=== PATIENT | male | born 1985 | race Caucasian/White ===

== ENCOUNTER 2020-08-25 10:23 | Inpatient (IN) | payer MEDICAID, SELFPAY ==
--- NOTE | ~2020-08-25 | CT_ITS ---
EXAMINATION: CT ABDOMEN AND PELVIS WITHOUT AND WITH CONTRAST CLINICAL INFORMATION: Question GI bleed. Patient with epigastric and left lower quadrant abdominal pain with bloody diarrhea COMPARISON: None TECHNIQUE: Multidetector volumetric imaging was performed of the abdomen and pelvis before and after the IV administration of 80 mL of Omnipaque 350 intravenous contrast. Sagittal and coronal reformatted images were obtained on the technologist's workstation. This CT examination was performed using dose optimization techniques as appropriate, variously including the following: *Automated exposure control *Adjustment of mA and/or kV according to patient size (this includes techniques or standardized protocols for targeted exams where dose is matched to indication/reason for exam; i.e. extremities or head) *Use of iterative reconstruction technique DLP: 2010 mGy-cm FINDINGS: LUNG BASES: The visualized lung bases are unremarkable. LIVER, GALLBLADDER, AND BILIARY TREE: The liver is normal in size, shape, and attenuation. No focal hepatic lesion or biliary ductal dilatation is present. The gallbladder is unremarkable with no evidence of radiopaque gallstones, gallbladder wall thickening, or obvious pericholecystic inflammatory changes. PANCREAS: Unremarkable SPLEEN: Unremarkable ADRENAL GLANDS: Unremarkable KIDNEYS AND URETERS: The kidneys are normal in size, shape, and attenuation. No hydronephrosis, hydroureter, or calculi seen. No perinephric stranding. BLADDER: Unremarkable GASTROINTESTINAL TRACT: The small and large bowel are unremarkable. The appendix is unremarkable. No abnormal colonic wall thickening to suggest colitis. No abnormal intraluminal contrast accumulation to suggest a site of active GI bleeding at the time of the scan. ABDOMINAL WALL: No significant hernia is appreciated. LYMPH NODES: Normal VASCULAR: Unremarkable PELVIC VISCERA: The prostate and seminal vesicles are unremarkable. OSSEOUS STRUCTURES: Unremarkable CT/CT abdomen pelvis wo/w con IMPRESSION: No acute CT findings. No abnormal intraluminal contrast accumulation to suggest a site of active GI bleeding at the time of the scan.
[2020-08-25 11:36] VITALS: BP 115/76; PULSE 91; RESP 18; TEMP 36.4; O2SAT 99; BMI 37.2
--- NOTE | 2020-08-25 14:22 | ECG_ITS ---
Test Reason : ABDOMIAL PAIN Blood Pressure : / mmHG Vent. Rate : 082 BPM Atrial Rate : 082 BPM P-R Int : 116 ms QRS Dur : 128 ms QT Int : 408 ms P-R-T Axes : 009 053 022 degrees QTc Int : 476 ms Normal sinus rhythm Right bundle branch block Abnormal ECG No previous ECGs available Referred By: Ashlee Chun Electronically Signed By:BRENNA OLSEN MD
[2020-08-25] MEDS: Morphine Sulfate 4 MG/ML CARTRIDGE IVPUSH (15:31)
[2020-08-25] MEDS: 0.9 % Sodium Chloride 1,000 ML 999 ML IVCONT ×2 (15:32→17:50)
[2020-08-25] MEDS: ondansetron HCL 4 MG/2 ML VIAL IVPUSH (15:32)
--- NOTE | 2020-08-25 15:35 | ED.GIBLEED ---
HPI - GI Bleed General Chief complaint: Abdominal Pain Stated complaint: VOMITNG Time Seen by Provider: 08/25/20 14:14 Source: patient and family Mode of arrival: ambulatory Limitations: no limitations History of Present Illness HPI Narrative: 35-year-old male with a past medical history of ADHD and insomnia presenting to the ED with complaints of nausea/vomiting/diarrhea and abdominal pain with gross Hematemesis and gross hematochezia for the past 5 days after eating a Ethiopian beef empanada at [facility] 5 days ago. Reports that he was seen at [facility] a few days ago and diagnosed with viral gastroenteritis and sent home with Reglan although reports no symptomatic relief. He reports the nausea/vomiting/gross hematemesis has resolved but he continues with the diffuse abdominal pain and gross hematochezia diarrhea. Reports he was only 1 that ate this. Denies recent travel or sick contacts. Denies any dizziness, headache fevers, chills, sore throat, chest pain, shortness of breath, palpitations, radiation of the abdominal pain to the back or any other symptoms complaints or concerns at this time. MD complaint: gross hematemesis and gross hematochezia Onset (ago): day(s) (Five days) Severity: moderate Relieving factors: none Exacerbating factors: eating, bowel movement and vomiting Associated symptoms: abdominal pain, nausea, vomiting and loss of appetite Treatments Prior to Arrival: OTC meds (And prescribed medications from [facility]) Related Data Home Medications Medication Instructions Recorded Confirmed bupropion HCl 150 mg PO DAILY 08/25/20 dextroamphetamine-amphetamine 30 mg PO DAILY 08/25/20 [Adderall XR] diphenhydramine HCl [Benadryl] 25 mg PO Q6H PRN 08/25/20 08/25/20 metoclopramide HCl 10 mg PO QID PRN 08/25/20 trazodone 150 mg PO BEDTIME PRN 08/25/20 Allergies Allergy/AdvReac Type Severity Reaction Status Date / Time No Known Allergies Allergy Unverified 12/23/19 15:40 [No Known Allergies*] Review of Systems Review of Systems: Constitutional : Positive fatigue/malaise, No Weight loss, No Fever, No Chills, No Night Sweats ENT/Mouth: No ear pain, No sore throat, No Difficulty swallowing Cardiovascular : No Chest Pain, No SOB, No Dyspnea on Exertion, No Orthopnea, No Edema, No Palpitations Respiratory : No Cough, No Sputum, No Wheezing, No Dyspnea Gastrointestinal : Resolved nausea/vomiting/gross hematemesis, positive abdominal pain/diarrhea/gross hematochezia, No coffee-ground emesis Genitourinary : No irregular bleeding, No Dysuria, No Urinary Frequency, No Hematuria,No Urinary Incontinence, No Urgency, No Flank Pain Musculoskeletal : No joint pain, No Myalgias, No Joint Swelling Skin : No Skin Lesions, No rash Neuro : Positive general Weakness, no focal weakness, No Numbness, No Paresthesias, No Loss of Consciousness, No Dizziness, No Headache Psych : No Social Issues, Heme/Lymph: No Bruising, No Bleeding,No Lymphadenopathy Endocrine : No Polyuria, No Polydipsia, No Temperature Intolerance Yes all other systems are reviewed and are negative [facility] Past Medical History Attestation statement: The following information was validated with the patient. Medical History ADHD Insomnia Social History Social History Alcohol intake: never Smoking Status: Never smoker Use of substances other than those prescribed or required for medical reasons: No Advance Directives: Yes Advance Directives Information Provided: No Advance Directives on File: No Physical Exam Vital Signs: Vital Signs: Last Vital Signs Temp 98.6 F 08/25/20 16:30 Pulse 73 08/25/20 16:30 Resp 18 08/25/20 16:30 BP 147/64 H 08/25/20 16:30 Pulse Ox 100 08/25/20 16:30 Body Mass Index 37.2 vital signs have been reviewed as normal and appeared to be correct. Blood pressure normal. Heart rate normal. Respiration rate normal. Temperature normal. Oxygen saturation normal. Appearance: Alert. Oriented X3. No acute distress. Head: Normal external exam. Normocephalic. Eyes: PERRLA. EOMI. Conjunctiva and sclera normal. Eyelids normal. ENT: Pharynx normal. Uvula midline. Moist mucous membranes. No trismus noted. No drooling noted. No muffled voice noted. Neck: Normal inspection. Neck supple. FROM. No adenopathy. No meningeal signs. CVS: Normal heart rate and rhythm. Heart sound normal. No murmurs noted. Pulses normal throughout. Respiratory: No respiratory distress. Painless inspiration. Breath sounds normal. No wheezes/rales/rhonchi noted. Chest nontender. No accessory muscle usage noted or decreased air movement noted. Abdomen: Soft and moderate tenderness to palpation to epigastric/left lower quadrant with guarding. Nondistended. No rigidity. Bowel sounds normal in all 4 quadrants. No distention noted. No organomegaly noted. No visible injury noted. No rebound tenderness. Negative Rovsing sign. Negative obturator's sign. Negative psoas sign. Negative Mendez sign. : Chaperoned by KACIE Booker. External exam within normal limits no external hemorrhoids noted. Normal sphincter tone. Normal rectal tone. Patient has maroon colored stool positive stool occult. Back: No CVA tenderness. Full range of motion noted. Skin: Skin warm and dry. Normal skin color. Normal skin turgor. No rashes/lesions/lacerations noted. Extremities: Extremities exhibit normal range of motion. Extremities nontender. Neuro: Oriented X 3. No motor deficit. No sensory deficit. Reflexes normal. Normal steady gait. Course Course Course Narrative: 17pm - CT scan tacks came out and reported that the patient just vomited black/dark red colored emesis therefore consulted with GI at this time Dr. Lucio - will start the patient on IV Protonix give 10 mg of Reglan and plan to admit for an endoscope with GI - labs return in patient with an H&H of . White blood cell count [id number]. PT/INR 14.5/1.2. UA revealed 40 ketones otherwise no evidence of UTI. ETOH level negative. Stool occult was positive. Patient negative for COVID/RSV/flu. - still awaiting CT scan abdomen pelvis with IV contrast will continue to monitor until I speak with Dr. Lucio from GI Reevaluation(s) Reevaluation #1: - Dr. Lucio reported to give the patient Carafate, Protonix will also give a dose of Zosyn and Dr. Lucio wants to wait for the CT scan of abdomen and pelvis for the results will re-evaluate Time: 17:11 MDM - GI Bleed MDM Narrative Medical decision making narrative: 35-year-old male with a past medical history of ADHD and insomnia presenting to the ED with complaints of nausea/vomiting/diarrhea and abdominal pain with gross Hematemesis and gross hematochezia for the past 5 days after eating a Ethiopian beef empanada at [facility] 5 days ago. - Plan:Labs, CT scan of abdomen and pelvis with IV contrast, EKG, blood cultures, lactic acid, white blood cells/stool culture, C diff culture. Provide a L of IV fluids, 4 mg of morphine and 4 mg of Zofran then re-evaluate. Medical Records Attestation: I reviewed the patient's medical records. Lab Data Attestation: I reviewed the patient's lab results. Result diagrams: 08/25/20 15:38 08/25/20 15:38 Labs: Lab Results 08/25/20 08/25/20 08/25/20 Range/Units 15:37 15:38 15:38 WBC 14.1 H (4.8-10.8) X10*3/uL RBC 4.39 L (4.60-5.80) X10*6/uL Hgb 11.8 L (14.0-18.0) g/dl Hct 36.4 L (42-52) % MCV 82.9 (80-98) fL MCH 26.9 L (27.0-33.0) pg MCHC 32.4 (31.0-36.0) g/dl RDW 12.4 (11.0-16.0) % Plt Count 358 (160-400) X10*3/uL MPV 11.2 (9.4-12.4) fL Immature Gran % (Auto) 0.5 H (0.0-0.4) % Neut % (Auto) 73.3 H (45-73) % Lymph % (Auto) 19.5 L (20-40) % Glynn % (Auto) 6.0 (2-11) % Eos % (Auto) 0.3 (0-4) % Baso % (Auto) 0.4 (0-2) % Lymph # (Auto) 2.8 (1.2-4.9) X10*3/uL Glynn # (Auto) 0.8 (0.1-1.2) X10*3/uL Eos # (Auto) 0.0 (0.0-0.4) X10*3/uL Baso # (Auto) 0.1 (0.0-0.2) X10*3/uL Abs Immat Gran (auto) 0.07 H (0.00-0.03) X10*3/uL Absolute Neuts (auto) 10.3 H (2.0-8.3) X10*3/uL Absolute Nucleated RBC 0.000 (0.0-0.012) X10*3/uL Nucleated RBC % (auto) 0.0 (0.0-0.2) /100WBC PT 14.5 H (10.8-13.0) SEC INR 1.2 H (0.9-1.1) Sodium (135-145) mmol/L Potassium (3.3-5.1) mmol/L Chloride (96-108) mmol/L Carbon Dioxide (22-29) mmol/L Anion Gap (12-20) BUN (9-16) mg/dL Creatinine (0.5-1.4) mg/dL Estim Creat Clear Calc Estimated GFR Random Glucose (60-115) mg/dL Lactic Acid 1.0 (0.5-2.0) mmol/L Calcium (8.4-10.2) mg/dL Total Bilirubin (0.0-1.0) mg/dL AST (5-37) U/L ALT (0-40) U/L Alkaline Phosphatase (39-117) U/L Total Protein (6.5-8.0) g/dL Albumin (3.5-5.0) g/dL Lipase (8-78) U/L Urine Color Urine Appearance Urine pH (5.0-8.0) Ur Specific [place] (1.005-1.025) Urine Protein (NEG-TRACE) MG/DL Urine Glucose (UA) (NEG) MG/DL Urine Ketones (NEG) MG/DL Urine Blood (NEG) Urine Nitrite (NEG) Ur Leukocyte Esterase (NEG) Stool Occult Blood (NEGATIVE) Ethyl Alcohol mg/dL Coronavirus (PCR) (Negative) Influenza Type A (PCR) (Negative) Influenza Type B (PCR) (Negative) RSV RNA Qual (PCR) (Negative) 08/25/20 08/25/20 08/25/20 Range/Units 15:38 15:38 16:01 WBC (4.8-10.8) X10*3/uL RBC (4.60-5.80) X10*6/uL Hgb (14.0-18.0) g/dl Hct (42-52) % MCV (80-98) fL MCH (27.0-33.0) pg MCHC (31.0-36.0) g/dl RDW (11.0-16.0) % Plt Count (160-400) X10*3/uL MPV (9.4-12.4) fL Immature Gran % (Auto) (0.0-0.4) % Neut % (Auto) (45-73) % Lymph % (Auto) (20-40) % Glynn % (Auto) (2-11) % Eos % (Auto) (0-4) % Baso % (Auto) (0-2) % Lymph # (Auto) (1.2-4.9) X10*3/uL Glynn # (Auto) (0.1-1.2) X10*3/uL Eos # (Auto) (0.0-0.4) X10*3/uL Baso # (Auto) (0.0-0.2) X10*3/uL Abs Immat Gran (auto) (0.00-0.03) X10*3/uL Absolute Neuts (auto) (2.0-8.3) X10*3/uL Absolute Nucleated RBC (0.0-0.012) X10*3/uL Nucleated RBC % (auto) (0.0-0.2) /100WBC PT (10.8-13.0) SEC INR (0.9-1.1) Sodium 139 (135-145) mmol/L Potassium 4.0 (3.3-5.1) mmol/L Chloride 103 (96-108) mmol/L Carbon Dioxide 28 (22-29) mmol/L Anion Gap 12 (12-20) BUN 16 (9-16) mg/dL Creatinine 0.97 (0.5-1.4) mg/dL Estim Creat Clear Calc 156.1 Estimated GFR > 60 Random Glucose 109 (60-115) mg/dL Lactic Acid (0.5-2.0) mmol/L Calcium 9.1 (8.4-10.2) mg/dL Total Bilirubin 0.8 (0.0-1.0) mg/dL AST 19 (5-37) U/L ALT 21 (0-40) U/L Alkaline Phosphatase 80 (39-117) U/L Total Protein 6.6 (6.5-8.0) g/dL Albumin 4.3 (3.5-5.0) g/dL Lipase 12 (8-78) U/L Urine Color Urine Appearance Urine pH (5.0-8.0) Ur Specific [place] (1.005-1.025) Urine Protein (NEG-TRACE) MG/DL Urine Glucose (UA) (NEG) MG/DL Urine Ketones (NEG) MG/DL Urine Blood (NEG) Urine Nitrite (NEG) Ur Leukocyte Esterase (NEG) Stool Occult Blood (NEGATIVE) Ethyl Alcohol < 10 mg/dL Coronavirus (PCR) NEGATIVE (Negative) Influenza Type A (PCR) NEGATIVE (Negative) Influenza Type B (PCR) NEGATIVE (Negative) RSV RNA Qual (PCR) NEGATIVE (Negative) 08/25/20 08/25/20 Range/Units 16:01 16:01 WBC (4.8-10.8) X10*3/uL RBC (4.60-5.80) X10*6/uL Hgb (14.0-18.0) g/dl Hct (42-52) % MCV (80-98) fL MCH (27.0-33.0) pg MCHC (31.0-36.0) g/dl RDW (11.0-16.0) % Plt Count (160-400) X10*3/uL MPV (9.4-12.4) fL Immature Gran % (Auto) (0.0-0.4) % Neut % (Auto) (45-73) % Lymph % (Auto) (20-40) % Glynn % (Auto) (2-11) % Eos % (Auto) (0-4) % Baso % (Auto) (0-2) % Lymph # (Auto) (1.2-4.9) X10*3/uL Glynn # (Auto) (0.1-1.2) X10*3/uL Eos # (Auto) (0.0-0.4) X10*3/uL Baso # (Auto) (0.0-0.2) X10*3/uL Abs Immat Gran (auto) (0.00-0.03) X10*3/uL Absolute Neuts (auto) (2.0-8.3) X10*3/uL Absolute Nucleated RBC (0.0-0.012) X10*3/uL Nucleated RBC % (auto) (0.0-0.2) /100WBC PT (10.8-13.0) SEC INR (0.9-1.1) Sodium (135-145) mmol/L Potassium (3.3-5.1) mmol/L Chloride (96-108) mmol/L Carbon Dioxide (22-29) mmol/L Anion Gap (12-20) BUN (9-16) mg/dL Creatinine (0.5-1.4) mg/dL Estim Creat Clear Calc Estimated GFR Random Glucose (60-115) mg/dL Lactic Acid (0.5-2.0) mmol/L Calcium (8.4-10.2) mg/dL Total Bilirubin (0.0-1.0) mg/dL AST (5-37) U/L ALT (0-40) U/L Alkaline Phosphatase (39-117) U/L Total Protein (6.5-8.0) g/dL Albumin (3.5-5.0) g/dL Lipase (8-78) U/L Urine Color DARK YELLOW Urine Appearance CLEAR Urine pH 6.0 (5.0-8.0) Ur Specific [place] 1.025 (1.005-1.025) Urine Protein NEG (NEG-TRACE) MG/DL Urine Glucose (UA) NEG (NEG) MG/DL Urine Ketones 40 (NEG) MG/DL Urine Blood NEG (NEG) Urine Nitrite NEG (NEG) Ur Leukocyte Esterase NEG (NEG) Stool Occult Blood POSITIVE (NEGATIVE) Ethyl Alcohol mg/dL Coronavirus (PCR) (Negative) Influenza Type A (PCR) (Negative) Influenza Type B (PCR) (Negative) RSV RNA Qual (PCR) (Negative) ECG Data Attestation: I personally reviewed and interpreted this ECG as follows: ECG interpretation date: 08/25/20 ECG interpretation time: 17:23 Interpretation: Normal sinus rhythm with a ventricular rate of 82 with right bundle-branch block no acute ischemic changes are noted. No prior EKGs to compare to at this time. Critical Care Time Critical Care Time Critical Care Time: Yes Total Critical Care Time: 60 Attestation: I personally attest to this time spent taking care of the patient Discharge Plan Discharge Clinical Impression: GI (gastrointestinal bleed) Patient Disposition: Admitted As Inpatient
[2020-08-25 15:44] LABS: MANUAL DIFF FLAG NO
[2020-08-25 15:46] LABS: Basophils Absolute Auto 0.1 X10*3/uL (0.0-0.2); Basophils Percent Auto 0.4 % (0-2); Eosinophils Percent Auto 0.3 % (0-4); Hematocrit 36.4 % (42-52); Hemoglobin 11.8 g/dl (14.0-18.0); Imm Gran Abs Auto 0.07 X10*3/uL (0.00-0.03); Imm Gran Pct Auto 0.5 % (0.0-0.4); Lymphocytes Absolute Auto 2.8 X10*3/uL (1.2-4.9); Lymphocytes Percent Auto 19.5 % (20-40); Mean Corpuscular HGB Conc 32.4 g/dl (31.0-36.0); Mean Corpuscular Hemoglobin 26.9 pg (27.0-33.0); Mean Corpuscular Volume 82.9 fL (80-98); Mean Platelet Volume 11.2 fL (9.4-12.4); Monocytes Absolute Auto 0.8 X10*3/uL (0.1-1.2); Neutrophils Absolute Auto 10.3 X10*3/uL (2.0-8.3); Neutrophils Percent Auto 73.3 % (45-73); Platelet Count 358 X10*3/uL (160-400); Red Blood Count 4.39 X10*6/uL (4.60-5.80); Red Cell Distribution Width 12.4 % (11.0-16.0); White Blood Count 14.1 X10*3/uL (4.8-10.8)
[2020-08-25 15:51] LABS: INTERNATIONAL NORM RATIO 1.2 (0.9-1.1); Prothrombin Time 14.5 SEC (10.8-13.0)
[2020-08-25 16:10] LABS: Glucose Urine UA NEG (NEG); Leukocyte Esterase Urine NEG (NEG); Nitrite Urine NEG (NEG); Specific Gravity - Urine 1.025 (1.005-1.025); Urine Blood NEG (NEG); Urine Ketones 40 MG/DL (NEG); Urine Protein NEG (NEG-TRACE)
[2020-08-25 16:12] LABS: Appearance Urine CLEAR; Color Urine DARK YELLOW
[2020-08-25 16:14] LABS: OBS Int Ctl Valid YES; OBS1 POSITIVE (NEGATIVE)
[2020-08-25 16:27] LABS: Ethanol < 10 mg/dL
[2020-08-25 16:30] VITALS: BP 147/64; PULSE 73; RESP 18; TEMP 37; O2SAT 100
[2020-08-25 16:30] LABS: Alanine Aminotransferase 21 U/L (0-40); Albumin Level 4.3 g/dL (3.5-5.0); Alkaline Phosphatase 80 U/L (39-117); Anion Gap 12 (12-20); Aspartate Amino Transferase 19 U/L (5-37); Bilirubin Total 0.8 mg/dL (0.0-1.0); Blood Urea Nitrogen 16 mg/dL (9-16); Calcium 9.1 mg/dL (8.4-10.2); Carbon Dioxide 28 mmol/L (22-29); Chloride 103 mmol/L (96-108); Creatinine Clr Calc Pharmacy 156.1; Estimated Glomerular Filt Rate > 60; Glucose Random 109 mg/dL (60-115); Lipase 12 U/L (8-78); Sodium 139 mmol/L (135-145); Total Protein 6.6 g/dL (6.5-8.0)
[2020-08-25 16:58] LABS: Influenza A PCR NEGATIVE (Negative); Influenza B PCR NEGATIVE (Negative); Resp Syncy Virus RNA Qual PCR NEGATIVE (Negative); SARS COV2 PCR INHOUSE NEGATIVE (Negative)
[2020-08-25] MEDS: iohexoL 350 MG/ML 100 ML INFUS..BTL IV (17:09)
[2020-08-25] MEDS: Piperacillin Sodium/Tazobactam 3.375 GM in 0.9 % Sodium Chloride 50 ML IV (17:51)
[2020-08-25] MEDS: Pantoprazole Sodium 40 MG/10 ML VIAL 80 MG IVPUSH (17:51)
[2020-08-25] MEDS: Metoclopramide HCl 10 MG/2 ML VIAL IVPUSH (17:51)
[2020-08-25] MEDS: Sucralfate 1 GM TABLET PO (17:51)
[2020-08-25 19:24] LABS: Magnesium 2.3 mg/dL (1.6-2.6)
[2020-08-25 20:44] VITALS: BP 100/51; PULSE 85; RESP 16; TEMP 36.6; O2SAT 98
--- NOTE | 2020-08-25 23:15 | PC.NURSE ---
Report given to C RN by Valentín. Plan to prepare pt for transport to floor.
--- NOTE | 2020-08-25 23:25 | P.HPHOSP_ITS ---
History of Present Illness Date of Service: 08/25/20 Chief Complaint: gi bleed This is a 35-year-old male with past medical history of ADHD, insomnia presents to the hospital with complaints of bloody vomitus as well as bloody stool. Patient reports that on Friday he improved with, has been vomitings about 3-4 ti mes every day until yesterday where he noticed his vomitus had blood. He had 2 episodes of bloody vomiting yesterday, and then he noticed bloody stools yesterday. This stool blood was dark blood but he also had 1 episode of bright red blood per rectum He has also had stomach pain since Friday nonradiating, localized to the epigastric region, 10/14, associated with nausea vomiting. Patient reports that he takes Advil daily for generalized pains and aches and he has been taking that for few months. He reports that his vomiting was aggressive/retching like and then he developed vomiting. he christine any headache, no change in vision, no chest pain, no shortness of breath, no cough, he reports dizziness but otherwise no shortness of breath. No Urinary symptoms and no lower extremity edema On arrival to the ED patient hemodynamically stable with no significant abnormal vitals Labs are significant for WBC count of 14.1, hemoglobin of 11.8 with no previous 1 for comparison, PC of 14.5, INR 1.2, labs otherwise unremarkable Abdominal pelvic CT shows no acute CT findings, no abnormal intraluminal ir contrast accumulation to suggest a site of active GI bleeding at the time of the scan. Past medical history as below on confirm with patient Review of Systems Review of Systems: Yes all other systems are reviewed and are negative [facility] Medical History ADHD Insomnia Social History Household Members: Significant Other Do you presently have visiting nurse or other home services: No Alcohol intake: never Smoking Status: Never smoker Use of substances other than those prescribed or required for medical reasons: Yes Substance Use Type: Marijuana Substance Use Frequency: Weekly Currently Displaying Signs/Symptoms of Drug Intoxication Withdrawal: No Any prior treatment program specific to substance use: No Have you been hit, kicked, punched, or otherwise hurt by someone within the past year? If so, by whom?: No Do you feel safe in your current relationship?: No Is there a partner from a previous relationship who is making you feel unsafe now?: No Are you made to feel afraid or neglected: No Advance Directives: Yes Advance Directives Information Provided: No Advance Directives on File: No Advance Directives Date on File: 08/26/20 Do you have thoughts of harming others: None Do you have a plan to hurt others: No Plan Recently lost weight without trying: No Eating poorly because of decreased appetite: Yes Nutrition Risks: Acute nausea or vomiting x1 week and Poor intake 0-25% >4 days Poor oral hygiene: No Meds Allergies Allergy/AdvReac Type Severity Reaction Status Date / Time No Known Allergies Allergy Unverified 12/23/19 15:40 [No Known Allergies*] Active Medications: Current Medications Generic Name Dose Route Start Last Admin Trade Name Freq PRN Reason Stop Dose Admin Acetaminophen 650 mg 08/25/20 22:39 Acetaminophen 325 Mg Tablet PO Q6H PRN Pain, Mild (Pain Scale 1-3) Bupropion HCl 150 mg 08/26/20 09:00 Bupropion Hcl Xl 150 Mg Tab.Er.24h PO DAILY [facility] Diphenhydramine HCl 25 mg 08/25/20 22:39 Diphenhydramine Hcl 25 Mg Tablet PO Q6H PRN Allergy Symptoms Melatonin 6 mg 08/25/20 22:45 Melatonin 3 Mg Tablet PO BEDTIME PRN Insomnia Non-Formulary Medication 30 mg 08/26/20 09:00 Dextroamphetamine-Amphetamine [Adderall Xr] PO DAILY [facility] Ondansetron HCl 4 mg 08/25/20 22:39 Ondansetron Hcl 4 Mg/2 Ml Vial IVPUSH Q8H PRN Nausea and Vomiting Pantoprazole Sodium 40 mg 08/26/20 06:30 Pantoprazole Sodium 40 Mg/10 Ml Vial IVPUSH [id number] [facility] Pharmacy Consult 1 each 08/25/20 16:59 Consult Rx Perform Med Rec MISCELLANE ONCE PRN Consult order Sodium Chloride 3 ml 08/26/20 00:00 0.9 % Sodium Chloride Flush 3 Ml Syringe IVFLUSH QSHIFT [facility] Trazodone HCl 150 mg 08/25/20 22:39 Trazodone Hcl 50 Mg Tablet PO BEDTIME PRN insomnia Home Medications Medication Instructions Recorded Confirmed Last Taken Type bupropion HCl 150 mg PO DAILY 08/25/20 08/25/20 08/16/20 History dextroamphetamine-amphetamine 30 mg PO DAILY 08/25/20 08/25/20 08/16/20 History [Adderall XR] diphenhydramine HCl [Benadryl] 25 mg PO Q6H PRN 08/25/20 08/25/20 Unknown History ibuprofen [Advil] 200 mg PO Q6H PRN 08/25/20 08/25/20 08/24/20 History melatonin 5 mg PO BEDTIME PRN 08/25/20 08/25/20 08/20/20 History metoclopramide HCl 10 mg PO QID PRN 08/25/20 08/25/20 08/24/20 History trazodone 150 mg PO BEDTIME PRN 08/25/20 08/25/20 08/16/20 History Physical Exam Vital Signs and Narrative: Vital Signs: Last Vital Signs Temp 98 F 08/25/20 20:44 Pulse 85 08/25/20 20:44 Resp 16 08/25/20 20:44 BP 100/51 L 08/25/20 20:44 Pulse Ox 98 08/25/20 20:44 Body Mass Index 37.2 Const: General: cooperative and no acute distress Orientation/consciousness: patient oriented x3 Eyes: General: appearance normal, both eyes and all related structures Resp: Effort & Inspection: normal respiratory effort and able to speak in complete sentences Cardio: Rate: regular rate Rhythm: regular rhythm GI: Other: Epigastric tenderness, no Rebound, no guarding Palpation (GI): Soft to palpation Auscultation: normal bowel sounds Skin: General skin exam: no rashes or lesions noted Neuro: General: patient oriented x3 Cognition (Neuro): normal cognition Extrem: General: Yes normal to inspection and Yes no pedal edema Results Labs CBC and Chem 7: 08/25/20 15:38 08/25/20 15:38 Labs: Laboratory Results - last 24 hr 08/25/20 08/25/20 08/25/20 15:37 15:38 15:38 MCV 82.9 MCH 26.9 L MCHC 32.4 RDW 12.4 Plt Count 358 MPV 11.2 Immature Gran % (Auto) 0.5 H Neut % (Auto) 73.3 H Lymph % (Auto) 19.5 L Bell % (Auto) 6.0 Eos % (Auto) 0.3 Baso % (Auto) 0.4 Lymph # (Auto) 2.8 Bell # (Auto) 0.8 Eos # (Auto) 0.0 Baso # (Auto) 0.1 Abs Immat Gran (auto) 0.07 H Absolute Neuts (auto) 10.3 H Absolute Nucleated RBC 0.000 Nucleated RBC % (auto) 0.0 PT 14.5 H INR 1.2 H Anion Gap Estim Creat Clear Calc Estimated GFR Random Glucose Lactic Acid 1.0 Calcium Magnesium Total Bilirubin AST ALT Alkaline Phosphatase Total Protein Albumin Lipase Urine Color Urine Appearance Urine pH Ur Specific [place] Urine Protein Urine Glucose (UA) Urine Ketones Urine Blood Urine Nitrite Ur Leukocyte Esterase Stool Occult Blood Ethyl Alcohol Coronavirus (PCR) Influenza Type A (PCR) Influenza Type B (PCR) RSV RNA Qual (PCR) 08/25/20 08/25/20 08/25/20 15:38 15:38 16:01 MCV MCH MCHC RDW Plt Count MPV Immature Gran % (Auto) Neut % (Auto) Lymph % (Auto) Bell % (Auto) Eos % (Auto) Baso % (Auto) Lymph # (Auto) Bell # (Auto) Eos # (Auto) Baso # (Auto) Abs Immat Gran (auto) Absolute Neuts (auto) Absolute Nucleated RBC Nucleated RBC % (auto) PT INR Anion Gap 12 Estim Creat Clear Calc 156.1 Estimated GFR > 60 Random Glucose 109 Lactic Acid Calcium 9.1 Magnesium 2.3 Total Bilirubin 0.8 AST 19 ALT 21 Alkaline Phosphatase 80 Total Protein 6.6 Albumin 4.3 Lipase 12 Urine Color Urine Appearance Urine pH Ur Specific [place] Urine Protein Urine Glucose (UA) Urine Ketones Urine Blood Urine Nitrite Ur Leukocyte Esterase Stool Occult Blood Ethyl Alcohol < 10 Coronavirus (PCR) NEGATIVE Influenza Type A (PCR) NEGATIVE Influenza Type B (PCR) NEGATIVE RSV RNA Qual (PCR) NEGATIVE 08/25/20 08/25/20 16:01 16:01 MCV MCH MCHC RDW Plt Count MPV Immature Gran % (Auto) Neut % (Auto) Lymph % (Auto) Bell % (Auto) Eos % (Auto) Baso % (Auto) Lymph # (Auto) Bell # (Auto) Eos # (Auto) Baso # (Auto) Abs Immat Gran (auto) Absolute Neuts (auto) Absolute Nucleated RBC Nucleated RBC % (auto) PT INR Anion Gap Estim Creat Clear Calc Estimated GFR Random Glucose Lactic Acid Calcium Magnesium Total Bilirubin AST ALT Alkaline Phosphatase Total Protein Albumin Lipase Urine Color DARK YELLOW Urine Appearance CLEAR Urine pH 6.0 Ur Specific [place] 1.025 Urine Protein NEG Urine Glucose (UA) NEG Urine Ketones 40 Urine Blood NEG Urine Nitrite NEG Ur Leukocyte Esterase NEG Stool Occult Blood POSITIVE Ethyl Alcohol Coronavirus (PCR) Influenza Type A (PCR) Influenza Type B (PCR) RSV RNA Qual (PCR) Imaging Radiologist's Impressions: Impressions Abdomen/Pelvis CT 08/25/20 14:22 IMPRESSION: No acute CT findings. No abnormal intraluminal contrast accumulation to suggest a site of active GI bleeding at the time of the scan. Assessment and Plan (1) GI (gastrointestinal bleed): Status: Acute (2) Hematemesis: Status: Acute This is a 35-year-old male who presents to the hospital with hematemesis and bloody bowel movements. 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 - make NPO - consult Gastroenterology # hematemesis - secondary to stomach ulcer versus gastritis secondary to NSAID use versus Annie-Oscar tear given his vomiting for the past 4 days prior to having the hematemesis - pen febrile IV 40 b.i.d. - discontinue Advil, avoid all NSAIDs - consult GI - Zofran with symptoms of nausea and vomiting # insomnia - continue home dose of trazodone and Benadryl as well as melatonin # ADHD - continue Adderall, BuSpar, Deep VT prophylaxis: SCDs
[2020-08-25 23:48] VITALS: BP 126/70; PULSE 75; RESP 18; TEMP 36.9; O2SAT 98
[2020-08-26] MEDS: 0.9 % Sodium Chloride Flush 3 ML SYRINGE IVFLUSH ×4 (01:11→21:33)
[2020-08-26 03:16] VITALS: BP 126/68; PULSE 74; RESP 18; TEMP 37; O2SAT 99
[2020-08-26] MEDS: Pantoprazole Sodium 40 MG/10 ML VIAL IVPUSH ×2 (06:11→15:43)
[2020-08-26 07:43] LABS: MANUAL DIFF FLAG NO
[2020-08-26 07:49] VITALS: BP 141/63; PULSE 68; RESP 18; TEMP 36.6; O2SAT 99
[2020-08-26 07:53] LABS: Basophils Absolute Auto 0.1 X10*3/uL (0.0-0.2); Basophils Percent Auto 0.8 % (0-2); Eosinophils Absolute Auto 0.2 X10*3/uL (0.0-0.4); Eosinophils Percent Auto 1.7 % (0-4); Hematocrit 29.6 % (42-52); Hemoglobin 9.4 g/dl (14.0-18.0); Imm Gran Abs Auto 0.07 X10*3/uL (0.00-0.03); Imm Gran Pct Auto 0.6 % (0.0-0.4); Lymphocytes Absolute Auto 3.6 X10*3/uL (1.2-4.9); Mean Corpuscular HGB Conc 31.8 g/dl (31.0-36.0); Mean Corpuscular Hemoglobin 26.6 pg (27.0-33.0); Mean Corpuscular Volume 83.6 fL (80-98); Mean Platelet Volume 11.8 fL (9.4-12.4); Monocytes Absolute Auto 0.8 X10*3/uL (0.1-1.2); Monocytes Percent Auto 7.3 % (2-11); Neutrophils Absolute Auto 6.2 X10*3/uL (2.0-8.3); Neutrophils Percent Auto 56.6 % (45-73); Platelet Count 297 X10*3/uL (160-400); Red Blood Count 3.54 X10*6/uL (4.60-5.80); Red Cell Distribution Width 12.4 % (11.0-16.0); White Blood Count 10.9 X10*3/uL (4.8-10.8)
[2020-08-26] MEDS: buPROPion HCl XL 150 MG TAB.ER.24H PO (08:01)
--- NOTE | 2020-08-26 08:13 | HO.PM.IMPN ---
Subjective Subjective Date of Service: 08/26/20 Interval History: Gi bleed Review of Systems Patient says his abdominal pain and nausea vomiting seems to be resolved No overnight bleeding episode Denies any fever chills Physical Exam Vital Signs: Vital Signs: Last Vital Signs Temp 97.9 F 08/26/20 07:49 Pulse 68 08/26/20 07:49 Resp 18 08/26/20 07:49 BP 141/63 H 08/26/20 07:49 Pulse Ox 99 08/26/20 07:49 Body Mass Index 37.2 Physical exam: Constitutional: Not in acute distress cvs: rrr, [id number] , no murmur res: clear to auscultation ,no rhonchii or wheezing abd: no rebound or guarding ,nt, bs present. ext pulses present , no cyanosis neuro: axo3 , nonfocal. Objective Data Current Medications Generic Name Dose Route Start Last Admin Trade Name Freq PRN Reason Stop Dose Admin Acetaminophen 650 mg 08/25/20 22:39 Acetaminophen 325 Mg Tablet PO Q6H PRN Pain, Mild (Pain Scale 1-3) Bupropion HCl 150 mg 08/26/20 09:00 08/26/20 08:01 Bupropion Hcl Xl 150 Mg Tab.Er.24h PO 150 mg DAILY [facility] Administration Diphenhydramine HCl 25 mg 08/25/20 22:39 Diphenhydramine Hcl 25 Mg Tablet PO Q6H PRN Allergy Symptoms Melatonin 6 mg 08/25/20 22:45 Melatonin 3 Mg Tablet PO BEDTIME PRN Insomnia Non-Formulary Medication 30 mg 08/26/20 09:00 Dextroamphetamine-Amphetamine [Adderall Xr] PO DAILY [facility] Ondansetron HCl 4 mg 08/25/20 22:39 Ondansetron Hcl 4 Mg/2 Ml Vial IVPUSH Q8H PRN Nausea and Vomiting Pantoprazole Sodium 40 mg 08/26/20 06:30 08/26/20 06:11 Pantoprazole Sodium 40 Mg/10 Ml Vial IVPUSH 40 mg BID@0630,1630 [facility] Administration Pharmacy Consult 1 each 08/25/20 16:59 Consult Rx Perform Med Rec MISCELLANE ONCE PRN Consult order Sodium Chloride 3 ml 08/26/20 00:00 08/26/20 08:02 0.9 % Sodium Chloride Flush 3 Ml Syringe IVFLUSH 3 ml QSHIFT [facility] Administration Trazodone HCl 150 mg 08/25/20 22:39 Trazodone Hcl 50 Mg Tablet PO BEDTIME PRN insomnia Labs CBC & Chem 7: 08/26/20 12:32 08/26/20 06:20 Assessment and Plan (1) Hematemesis: Status: Acute (2) GI (gastrointestinal bleed): Status: Acute Assessment and Plan: 35-year-old male who presents to the hospital with hematemesis and bloody bowel movements. 1. 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 Type and cross, monitor H&H closely. 2. hematemesis - secondary to stomach ulcer versus gastritis secondary to NSAID use versus Annie-Oscar tear given his vomiting for the past 4 days prior to having the hematemesis - pen febrile IV 40 b.i.d. - discontinue Advil, avoid all NSAIDs - consult GI - Zofran with symptoms of nausea and vomiting 3. insomnia - continue home dose of trazodone and Benadryl as well as melatonin 4. ADHD - continue Adderall, BuSpar,
[2020-08-26 08:27] LABS: Anion Gap 9 (12-20); Blood Urea Nitrogen 13 mg/dL (9-16); Calcium 8.3 mg/dL (8.4-10.2); Carbon Dioxide 29 mmol/L (22-29); Chloride 106 mmol/L (96-108); Creatinine Clr Calc Pharmacy 172.1; Estimated Glomerular Filt Rate > 60; Glucose Random 91 mg/dL (60-115); Potassium 4.8 mmol/L (3.3-5.1); Sodium 139 mmol/L (135-145)
[2020-08-26 12:00] VITALS: BP 142/68; PULSE 73; RESP 20; TEMP 36.3; O2SAT 99
[2020-08-26 12:39] LABS: Hematocrit 29.3 % (42-52); Hemoglobin 9.5 g/dl (14.0-18.0)
--- NOTE | 2020-08-26 15:10 | P.CNGI_ITS ---
History of Present Illness Data of Consult Service Date: 08/27/20 Requesting physician: Gavino Garza Primary Care Provider: Vidal Mendoza MD [facility] Reason for consult: acute blood loss anemia 35-year-old male with past medical history of ADHD, and insomnia who I am seeing for assessment for acute blood loss anemia. He has been having epigastric pain for several days 10/14 in severity, without radiation. associated with nausea and coffee ground emesis as well as mixture of black stools and bright red blood stools. Patient reports that he takes Advil daily for generalized pains and aches and he has been taking for 7 months at night. he denies any headache, no change in vision, no chest pain, no shortness of breath, no cough, he reports dizziness but otherwise no shortness of breath. No Urinary symptoms and no lower extremity edema Today feels better, no pain, passing dark stools. On arrival to the ED patient hemodynamically stable with no significant abnormal vitals Labs: WBC count of 14.1, hemoglobin of 11.8 dropping to 9.4 g/dl, PC of 14.5, INR 1.2, labs otherwise unremarkable Abdominal pelvic CT shows no acute CT findings, no active GI bleeding at the time of the scan. Review of Systems Review of Systems: Constitutional : Positive fatigue/malaise, No Weight loss, No Fever, No Chills, No Night Sweats ENT/Mouth: No ear pain, No sore throat, No Difficulty swallowing Cardiovascular : No Chest Pain, No SOB, No Dyspnea on Exertion, No Orthopnea, No Edema, No Palpitations Respiratory : No Cough, No Sputum, No Wheezing, No Dyspnea Gastrointestinal : Resolved nausea/vomiting/gross hematemesis, positive abdominal pain/diarrhea/gross hematochezia, No coffee-ground emesis Genitourinary : No irregular bleeding, No Dysuria, No Urinary Frequency, No Hematuria,No Urinary Incontinence, No Urgency, No Flank Pain Musculoskeletal : No joint pain, No Myalgias, No Joint Swelling Skin : No Skin Lesions, No rash Neuro : Positive general Weakness, no focal weakness, No Numbness, No Paresthesias, No Loss of Consciousness, No Dizziness, No Headache Psych : No Social Issues, Heme/Lymph: No Bruising, No Bleeding,No Lymphadenopathy Endocrine : No Polyuria, No Polydipsia, No Temperature Intolerance Yes all other systems are reviewed and are negative [facility] Past Medical History Medical History ADHD Insomnia Social History Social History Household Members: Significant Other Do you presently have visiting nurse or other home services: No Alcohol intake: never Smoking Status: Never smoker Use of substances other than those prescribed or required for medical reasons: Yes Substance Use Type: Marijuana Substance Use Frequency: Weekly Currently Displaying Signs/Symptoms of Drug Intoxication Withdrawal: No Any prior treatment program specific to substance use: No Have you been hit, kicked, punched, or otherwise hurt by someone within the past year? If so, by whom?: No Do you feel safe in your current relationship?: No Is there a partner from a previous relationship who is making you feel unsafe now?: No Are you made to feel afraid or neglected: No Advance Directives: Yes Advance Directives Information Provided: No Advance Directives on File: No Advance Directives Date on File: 08/26/20 Do you have thoughts of harming others: None Do you have a plan to hurt others: No Plan Recently lost weight without trying: No Eating poorly because of decreased appetite: Yes Nutrition Risks: Acute nausea or vomiting x1 week and Poor intake 0-25% >4 days Poor oral hygiene: No Meds Allergies Allergy/AdvReac Type Severity Reaction Status Date / Time No Known Allergies Allergy Unverified 12/23/19 15:40 [No Known Allergies*] Active Medications: Current Medications Generic Name Dose Route Start Last Admin Trade Name Freq PRN Reason Stop Dose Admin Acetaminophen 650 mg 08/25/20 22:39 Acetaminophen 325 Mg Tablet PO Q6H PRN Pain, Mild (Pain Scale 1-3) Bupropion HCl 150 mg 08/26/20 09:00 08/26/20 08:01 Bupropion Hcl Xl 150 Mg Tab.Er.24h PO 150 mg DAILY [facility] Administration Diphenhydramine HCl 25 mg 08/25/20 22:39 Diphenhydramine Hcl 25 Mg Tablet PO Q6H PRN Allergy Symptoms Melatonin 6 mg 08/25/20 22:45 Melatonin 3 Mg Tablet PO BEDTIME PRN Insomnia Non-Formulary Medication 30 mg 08/26/20 09:00 Dextroamphetamine-Amphetamine [Adderall Xr] PO DAILY [facility] Ondansetron HCl 4 mg 08/25/20 22:39 Ondansetron Hcl 4 Mg/2 Ml Vial IVPUSH Q8H PRN Nausea and Vomiting Pantoprazole Sodium 40 mg 08/26/20 06:30 08/26/20 06:11 Pantoprazole Sodium 40 Mg/10 Ml Vial IVPUSH 40 mg BID@0630,1630 [facility] Administration Pharmacy Consult 1 each 08/25/20 16:59 Consult Rx Perform Med Rec MISCELLANE ONCE PRN Consult order Sodium Chloride 3 ml 08/26/20 00:00 08/26/20 08:02 0.9 % Sodium Chloride Flush 3 Ml Syringe IVFLUSH 3 ml QSHIFT [facility] Administration Trazodone HCl 150 mg 08/25/20 22:39 Trazodone Hcl 50 Mg Tablet PO BEDTIME PRN insomnia Home Medications Medication Instructions Recorded Confirmed Last Taken Type bupropion HCl 150 mg PO DAILY 08/25/20 08/25/20 08/16/20 History dextroamphetamine-amphetamine 30 mg PO DAILY 08/25/20 08/25/20 08/16/20 History [Adderall XR] diphenhydramine HCl [Benadryl] 25 mg PO Q6H PRN 08/25/20 08/25/20 Unknown History ibuprofen [Advil] 200 mg PO Q6H PRN 08/25/20 08/25/20 08/24/20 History melatonin 5 mg PO BEDTIME PRN 08/25/20 08/25/20 08/20/20 History metoclopramide HCl 10 mg PO QID PRN 08/25/20 08/25/20 08/24/20 History trazodone 150 mg PO BEDTIME PRN 08/25/20 08/25/20 08/16/20 History Physical Exam Vital Signs: Vital Signs: Last Vital Signs Temp 97.3 F 08/26/20 12:00 Pulse 73 08/26/20 12:00 Resp 20 08/26/20 12:00 BP 142/68 H 08/26/20 12:00 Pulse Ox 99 08/26/20 12:00 Body Mass Index 37.2 Const: General: cooperative and no acute distress Orientation/consciousness: patient oriented x3 Eyes: General: appearance normal, both eyes and all related structures Resp: Effort & Inspection: normal respiratory effort and able to speak in complete sentences Cardio: Rate: regular rate Rhythm: regular rhythm GI: Other: Epigastric tenderness, no Rebound, no guarding Palpation (GI): Soft to palpation Auscultation: normal bowel sounds Skin: General skin exam: no rashes or lesions noted Neuro: General: patient oriented x3 Cognition (Neuro): normal cognition Extrem: General: Yes normal to inspection and Yes no pedal edema Results Labs CBC & Chem 7: 08/27/20 04:05 08/27/20 04:05 Labs: Short CBC 08/25/20 08/26/20 08/26/20 Range/Units 15:38 06:20 12:32 WBC 14.1 H 10.9 H (4.8-10.8) X10*3/uL Hgb 11.8 L 9.4 L D 9.5 L (14.0-18.0) g/dl Hct 36.4 L 29.6 L 29.3 L (42-52) % Plt Count 358 297 (160-400) X10*3/uL BMP 08/25/20 08/26/20 15:38 06:20 Sodium 139 139 Potassium 4.0 4.8 Chloride 103 106 Carbon Dioxide 28 29 BUN 16 13 Creatinine 0.97 0.88 Calcium 9.1 8.3 L D Liver Function 08/25/20 Range/Units 15:38 Total Bilirubin 0.8 (0.0-1.0) mg/dL AST 19 (5-37) U/L ALT 21 (0-40) U/L Alkaline Phosphatase 80 (39-117) U/L Albumin 4.3 (3.5-5.0) g/dL Urine 08/25/20 Range/Units 16:01 Urine Color DARK YELLOW Urine Appearance CLEAR Urine pH 6.0 (5.0-8.0) Ur Specific Magee 1.025 (1.005-1.025) Urine Protein NEG (NEG-TRACE) MG/DL Urine Glucose (UA) NEG (NEG) MG/DL Assessment and Plan (1) GI (gastrointestinal bleed): Status: Acute 1/ Acute blood loss anemia, possible PUD related to nsaids with rapid bowel transit, ddx: gastritis, esophagitis, AVM, dieulafoy--No evidence to suggest cirrhosis and varices PLAN: 1/ Keep on clears 2/ track HGB q8 h, transfuse if hgb <7 g/dl 3/ keep on PPI 4/ EGD today Procedures Date of Service Date of Service: 08/27/20
[2020-08-26 15:17] VITALS: BP 145/68; PULSE 84; RESP 18; TEMP 37.3; O2SAT 99
[2020-08-26 19:21] VITALS: BP 146/57; PULSE 68; RESP 18; TEMP 37.2; O2SAT 99
[2020-08-26 21:00] LABS: Hematocrit 27.8 % (42-52); Hemoglobin 9.2 g/dl (14.0-18.0)
[2020-08-26] MEDS: traZODone HCL 50 MG TABLET 150 MG PO (21:33)
[2020-08-26] MEDS: diphenhydrAMINE HCL 25 MG TABLET PO (21:33)
[2020-08-26 23:57] VITALS: BP 132/62; PULSE 71; RESP 18; TEMP 36.6; O2SAT 97
[2020-08-27 03:14] VITALS: BP 133/72; PULSE 68; RESP 18; TEMP 36.6; O2SAT 97
[2020-08-27 05:36] LABS: Hematocrit 28.2 % (42-52); Mean Corpuscular HGB Conc 31.9 g/dl (31.0-36.0); Mean Corpuscular Hemoglobin 26.5 pg (27.0-33.0); Mean Corpuscular Volume 82.9 fL (80-98); Mean Platelet Volume 11.7 fL (9.4-12.4); Platelet Count 289 X10*3/uL (160-400); Red Cell Distribution Width 12.5 % (11.0-16.0)
[2020-08-27 05:41] LABS: Anion Gap 10 (12-20); Blood Urea Nitrogen 8 mg/dL (9-16); Calcium 8.1 mg/dL (8.4-10.2); Carbon Dioxide 29 mmol/L (22-29); Chloride 104 mmol/L (96-108); Estimated Glomerular Filt Rate > 60; Glucose Random 88 mg/dL (60-115); Potassium 3.9 mmol/L (3.3-5.1); Sodium 139 mmol/L (135-145)
[2020-08-27] MEDS: Pantoprazole Sodium 40 MG/10 ML VIAL IVPUSH (06:25)
[2020-08-27 08:00] VITALS: BP 132/60; PULSE 66; RESP 20; TEMP 37.3; O2SAT 97
--- NOTE | 2020-08-27 08:42 | MHC.SHP ---
Pre-Procedural Eval Section A The patient is an INPATIENT: Yes The History & Physical has been completed within 30 days and I have reviewed it.: Yes Section B Chief Complaint: GI bleed Allergies: Allergies Allergy/AdvReac Type Severity Reaction Status Date / Time No Known Allergies Allergy Unverified 12/23/19 15:40 [No Known Allergies*] Plan Diagnosis/Plan: Unchanged I have reviewed the history and physical and performed a pertinent physical examination on my patient. No changes have occurred unless specified.
--- NOTE | 2020-08-27 08:56 | P.BOP_ITS ---
Brief Operative Note Date of Service: 08/27/20 Pre-op diagnosis: anemia Post-op diagnosis: same Procedure: see op note Surgeon: Arleen Lucio MD Anesthesia: MAC Was an Salesperson Burial Needs used for this Procedure?: No Estimated blood loss (mL): 0 Condition: stable Disposition: PACU
--- NOTE | 2020-08-27 08:57 | P.OP_ITS ---
Operative Note Operative Note Date of Service: 08/27/20 Narrative: Procedure Description: EGD FLEXIBLE TRANSORAL UPPER GASTROINTESTINAL ENDOSCOPY UPPER ENDOSCOPY Consent: Indications for the procedure and potential complications of bleeding, perforation, reaction to medications and missed diagnosis were discussed with the patient and informed consent was obtained. Instrument: Olympus GIF H 190 J mid size upper endoscope Monitoring: Vital signs and clinical assessment, continuous EKG monitoring, Pulse oximetry, Carbon Dioxide monitoring and blood pressure monitoring were done throughout the procedure. Procedure: The patient was placed in the left lateral decubitis position and pre-procedure medications were administered and a bite block was placed. The endoscope was inserted into the mouth and advanced under direct vision to the third part of duodenum. A careful inspection was made as the upper endoscope was withdrawn including a retroflexed examination of the proximal stomach; Findings and interventions are described below. Findings: Larynx:normal Esophagus: GE junction at 42 cm, diaphragm hiatus at 42 cm, no varices or esophagitis. Stomach: Patchy gastric erythema with few erosions. Biopsies were obtained. Gr ghassan 2 flap valve on retroflexed examination of the cardia. A clean based craterifrom ulcer noted at antrum measuring 10-12 mm, no active bleeding or vessels seen. Duodenum: At duodenal sweep 10 mm superficial ulcer noted, clean based, without any bleeding. Intervention: Biopsies as noted above for h pylori Impression/Findings: gastric ulcer gastric erosions duodenal ulcer Both ulcers Hermann grade III (<5% of rebleeding) PLAN: High dose PPI e.g pantoprazole 40 mg BID for 3 months then can titrate down can advance diet and allow home f/u in GI office, and repeat scope in 3 months or so to ensure healing if H pylori pos then treat avoid ibuprofen, can use tylenol for pain relief if needed
[2020-08-27 09:08] VITALS: BP 124/64; PULSE 79; RESP 16; TEMP 37.2; O2SAT 98
--- NOTE | 2020-08-27 09:12 | HO.ANESPROP2 ---
[facility] Active Problems Active Problems: All Active Problems (Updated 08/26/20 @ 05:04 by Melissa Fuller MD) Hematemesis (Acute) GI (gastrointestinal bleed) (Acute) Insomnia (Acute) ADHD (Acute) Past Medical History Medical History ADHD Insomnia Social History Social History Household Members: Significant Other Do you presently have visiting nurse or other home services: No Alcohol intake: never Smoking Status: Never smoker Use of substances other than those prescribed or required for medical reasons: Yes Substance Use Type: Marijuana Substance Use Frequency: Weekly Currently Displaying Signs/Symptoms of Drug Intoxication Withdrawal: No Any prior treatment program specific to substance use: No Have you been hit, kicked, punched, or otherwise hurt by someone within the past year? If so, by whom?: No Do you feel safe in your current relationship?: No Is there a partner from a previous relationship who is making you feel unsafe now?: No Are you made to feel afraid or neglected: No Advance Directives: Yes Advance Directives Information Provided: No Advance Directives on File: No Advance Directives Date on File: 08/26/20 Do you have thoughts of harming others: None Do you have a plan to hurt others: No Plan Recently lost weight without trying: No Eating poorly because of decreased appetite: Yes Nutrition Risks: Acute nausea or vomiting x1 week and Poor intake 0-25% >4 days Poor oral hygiene: No Meds Allergies Allergy/AdvReac Type Severity Reaction Status Date / Time No Known Allergies Allergy Unverified 12/23/19 15:40 [No Known Allergies*] Active Medications: Current Medications Generic Name Dose Route Start Last Admin Trade Name Freq PRN Reason Stop Dose Admin Acetaminophen 650 mg 08/25/20 22:39 Acetaminophen 325 Mg Tablet PO Q6H PRN Pain, Mild (Pain Scale 1-3) Bupropion HCl 150 mg 08/26/20 09:00 08/26/20 08:01 Bupropion Hcl Xl 150 Mg Tab.Er.24h PO 150 mg DAILY [facility] Administration Diphenhydramine HCl 25 mg 08/25/20 22:39 08/26/20 21:33 Diphenhydramine Hcl 25 Mg Tablet PO 25 mg Q6H PRN Administration Allergy Symptoms Melatonin 6 mg 05/21/21 22:45 Melatonin 3 Mg Tablet PO BEDTIME PRN Insomnia Non-Formulary Medication 30 mg 08/26/20 09:00 Dextroamphetamine-Amphetamine [Adderall Xr] PO DAILY [facility] Ondansetron HCl 4 mg 08/25/20 22:39 Ondansetron Hcl 4 Mg/2 Ml Vial IVPUSH Q8H PRN Nausea and Vomiting Pantoprazole Sodium 40 mg 08/26/20 06:30 08/27/20 06:25 Pantoprazole Sodium 40 Mg/10 Ml Vial IVPUSH 40 mg BID@[id number] [facility] Administration Pharmacy Consult 1 each 08/25/20 16:59 Consult Rx Perform Med Rec MISCELLANE ONCE PRN Consult order Sodium Chloride 3 ml 08/26/20 00:00 08/27/20 09:02 0.9 % Sodium Chloride Flush 3 Ml Syringe IVFLUSH Not Given QSHIFT [facility] Trazodone HCl 150 mg 08/25/20 22:39 08/26/20 21:33 Trazodone Hcl 50 Mg Tablet PO 150 mg BEDTIME PRN Administration insomnia Home Medications Medication Instructions Recorded Confirmed Last Taken Type bupropion HCl 150 mg PO DAILY 08/25/20 08/25/20 08/16/20 History dextroamphetamine-amphetamine 30 mg PO DAILY 08/25/20 08/25/20 08/16/20 History [Adderall XR] diphenhydramine HCl [Benadryl] 25 mg PO Q6H PRN 08/25/20 08/25/20 Unknown History ibuprofen [Advil] 200 mg PO Q6H PRN 08/25/20 08/25/20 08/24/20 History melatonin 5 mg PO BEDTIME PRN 08/25/20 08/25/20 08/20/20 History metoclopramide HCl 10 mg PO QID PRN 08/25/20 08/25/20 08/24/20 History trazodone 150 mg PO BEDTIME PRN 08/25/20 08/25/20 08/16/20 History Exam Exam Date and Time: August 27, 2020 0912 Height,Weight and Vital Signs: Height 6 ft 2 in Weight 131.542 kg Last Vital Signs Temp 99.1 F 08/27/20 08:00 Pulse 66 08/27/20 08:00 Resp 20 08/27/20 08:00 BP 132/60 08/27/20 08:00 Pulse Ox 97 08/27/20 08:00 Pertinent Lab Results Pertinent Lab Results: Laboratory Tests 08/25/20 08/25/20 08/25/20 15:37 15:38 15:38 WBC 14.1 H RBC 4.39 L Hgb 11.8 L Hct 36.4 L MCV 82.9 MCH 26.9 L MCHC 32.4 RDW 12.4 Plt Count 358 MPV 11.2 Immature Gran % (Auto) 0.5 H Neut % (Auto) 73.3 H Lymph % (Auto) 19.5 L [place] % (Auto) 6.0 Eos % (Auto) 0.3 Baso % (Auto) 0.4 Lymph # (Auto) 2.8 [place] # (Auto) 0.8 Eos # (Auto) 0.0 Baso # (Auto) 0.1 Abs Immat Gran (auto) 0.07 H Absolute Neuts (auto) 10.3 H Absolute Nucleated RBC 0.000 Nucleated RBC % (auto) 0.0 PT 14.5 H INR 1.2 H Sodium Potassium Chloride Carbon Dioxide Anion Gap BUN Creatinine Estim Creat Clear Calc Estimated GFR Random Glucose Lactic Acid 1.0 Calcium Magnesium Total Bilirubin AST ALT Alkaline Phosphatase Total Protein Albumin Lipase Urine Color Urine Appearance Urine pH Ur Specific [place] Urine Protein Urine Glucose (UA) Urine Ketones Urine Blood Urine Nitrite Ur Leukocyte Esterase Stool Occult Blood Ethyl Alcohol Coronavirus (PCR) Influenza Type A (PCR) Influenza Type B (PCR) RSV RNA Qual (PCR) Blood Type Antibody Screen 08/25/20 08/25/20 08/25/20 15:38 15:38 16:01 WBC RBC Hgb Hct MCV MCH MCHC RDW Plt Count MPV Immature Gran % (Auto) Neut % (Auto) Lymph % (Auto) [place] % (Auto) Eos % (Auto) Baso % (Auto) Lymph # (Auto) [place] # (Auto) Eos # (Auto) Baso # (Auto) Abs Immat Gran (auto) Absolute Neuts (auto) Absolute Nucleated RBC Nucleated RBC % (auto) PT INR Sodium 139 Potassium 4.0 Chloride 103 Carbon Dioxide 28 Anion Gap 12 BUN 16 Creatinine 0.97 Estim Creat Clear Calc 156.1 Estimated GFR > 60 Random Glucose 109 Lactic Acid Calcium 9.1 Magnesium 2.3 Total Bilirubin 0.8 AST 19 ALT 21 Alkaline Phosphatase 80 Total Protein 6.6 Albumin 4.3 Lipase 12 Urine Color Urine Appearance Urine pH Ur Specific [place] Urine Protein Urine Glucose (UA) Urine Ketones Urine Blood Urine Nitrite Ur Leukocyte Esterase Stool Occult Blood Ethyl Alcohol < 10 Coronavirus (PCR) NEGATIVE Influenza Type A (PCR) NEGATIVE Influenza Type B (PCR) NEGATIVE RSV RNA Qual (PCR) NEGATIVE Blood Type Antibody Screen 08/25/20 08/25/20 08/26/20 16:01 16:01 06:20 WBC 10.9 H RBC 3.54 L Hgb 9.4 L D Hct 29.6 L MCV 83.6 MCH 26.6 L MCHC 31.8 RDW 12.4 Plt Count 297 MPV 11.8 Immature Gran % (Auto) 0.6 H Neut % (Auto) 56.6 Lymph % (Auto) 33.0 [place] % (Auto) 7.3 Eos % (Auto) 1.7 Baso % (Auto) 0.8 Lymph # (Auto) 3.6 [place] # (Auto) 0.8 Eos # (Auto) 0.2 Baso # (Auto) 0.1 Abs Immat Gran (auto) 0.07 H Absolute Neuts (auto) 6.2 Absolute Nucleated RBC 0.000 Nucleated RBC % (auto) 0.0 PT INR Sodium Potassium Chloride Carbon Dioxide Anion Gap BUN Creatinine Estim Creat Clear Calc Estimated GFR Random Glucose Lactic Acid Calcium Magnesium Total Bilirubin AST ALT Alkaline Phosphatase Total Protein Albumin Lipase Urine Color DARK YELLOW Urine Appearance CLEAR Urine pH 6.0 Ur Specific [place] 1.025 Urine Protein NEG Urine Glucose (UA) NEG Urine Ketones 40 Urine Blood NEG Urine Nitrite NEG Ur Leukocyte Esterase NEG Stool Occult Blood POSITIVE Ethyl Alcohol Coronavirus (PCR) Influenza Type A (PCR) Influenza Type B (PCR) RSV RNA Qual (PCR) Blood Type Antibody Screen 08/26/20 08/26/20 08/26/20 06:20 09:10 12:32 WBC RBC Hgb 9.5 L Hct 29.3 L MCV MCH MCHC RDW Plt Count MPV Immature Gran % (Auto) Neut % (Auto) Lymph % (Auto) [place] % (Auto) Eos % (Auto) Baso % (Auto) Lymph # (Auto) [place] # (Auto) Eos # (Auto) Baso # (Auto) Abs Immat Gran (auto) Absolute Neuts (auto) Absolute Nucleated RBC Nucleated RBC % (auto) PT INR Sodium 139 Potassium 4.8 Chloride 106 Carbon Dioxide 29 Anion Gap 9 L BUN 13 Creatinine 0.88 Estim Creat Clear Calc 172.1 Estimated GFR > 60 Random Glucose 91 Lactic Acid Calcium 8.3 L D Magnesium Total Bilirubin AST ALT Alkaline Phosphatase Total Protein Albumin Lipase Urine Color Urine Appearance Urine pH Ur Specific [place] Urine Protein Urine Glucose (UA) Urine Ketones Urine Blood Urine Nitrite Ur Leukocyte Esterase Stool Occult Blood Ethyl Alcohol Coronavirus (PCR) Influenza Type A (PCR) Influenza Type B (PCR) RSV RNA Qual (PCR) Blood Type O Positive Antibody Screen NEGATIVE 08/26/20 08/27/20 08/27/20 20:54 04:05 04:05 WBC 9.0 RBC 3.40 L Hgb 9.2 L 9.0 L Hct 27.8 L 28.2 L MCV 82.9 MCH 26.5 L MCHC 31.9 RDW 12.5 Plt Count 289 MPV 11.7 Immature Gran % (Auto) Neut % (Auto) Lymph % (Auto) [place] % (Auto) Eos % (Auto) Baso % (Auto) Lymph # (Auto) [place] # (Auto) Eos # (Auto) Baso # (Auto) Abs Immat Gran (auto) Absolute Neuts (auto) Absolute Nucleated RBC 0.000 Nucleated RBC % (auto) 0.0 PT INR Sodium 139 Potassium 3.9 Chloride 104 Carbon Dioxide 29 Anion Gap 10 L BUN 8 L Creatinine 1.03 Estim Creat Clear Calc 147.0 Estimated GFR > 60 Random Glucose 88 Lactic Acid Calcium 8.1 L Magnesium Total Bilirubin AST ALT Alkaline Phosphatase Total Protein Albumin Lipase Urine Color Urine Appearance Urine pH Ur Specific [place] Urine Protein Urine Glucose (UA) Urine Ketones Urine Blood Urine Nitrite Ur Leukocyte Esterase Stool Occult Blood Ethyl Alcohol Coronavirus (PCR) Influenza Type A (PCR) Influenza Type B (PCR) RSV RNA Qual (PCR) Blood Type Antibody Screen Airway Mallampati Class: I TM Dist: >3cm Neck ROM: Full
[2020-08-27 09:13] VITALS: PULSE 80; RESP 18; O2SAT 99
[2020-08-27 09:23] VITALS: BP 115/72; PULSE 77; RESP 18; O2SAT 99
[2020-08-27 09:40] VITALS: BP 169/80; PULSE 71; RESP 20; O2SAT 99
--- NOTE | 2020-08-27 09:50 | MHC.CM.PN ---
PT REPORTS HE LIVES WITH HIS S/O AND IS INDEPENDENT WITH ALL CARE AND MOBILITY. PT REPORTS HE HAS NO SERVICES AND NO DME. PT CONFIRMS HIS PCP IS KIERRA SIDDIQUI. CURRENT DC PLAN IS HOME WITH NO SERVICES PT WILL SELF ARRANGE TRANSPORT
[2020-08-27] MEDS: buPROPion HCl XL 150 MG TAB.ER.24H PO (10:54)
--- NOTE | 2020-08-27 11:31 | PM.DS ---
DS: Providers Provider Date of Service: 08/27/20 Date of admission: 08/25/20 22:14 Primary care physician: Vidal Mendoza MD Consults: 08/25/20 22:39 Consult to Gastroenterology Routine Consulting Provider: Arleen Lucio Reason for consultation: gi bleed Has provider been notified: Yes DS: Diagnosis Discharge Diagnosis (1) GI (gastrointestinal bleed): Status: Acute DS: Medications Discharge Medications Home Medications: Home Medications Medication Instructions Recorded Confirmed bupropion HCl 150 mg PO DAILY 08/25/20 08/25/20 dextroamphetamine-amphetamine 30 mg PO DAILY 08/25/20 08/25/20 [Adderall XR] diphenhydramine HCl [Benadryl] 25 mg PO Q6H PRN 08/25/20 08/25/20 melatonin 5 mg PO BEDTIME PRN 08/25/20 08/25/20 metoclopramide HCl 10 mg PO QID PRN 08/25/20 08/25/20 trazodone 150 mg PO BEDTIME PRN 08/25/20 08/25/20 Previous Rx's Medication Instructions Recorded omeprazole 40 mg PO BID #60 cap 08/27/20 DS: Summary Hospital Course Hospital Course: History of present illness. Chief Complaint: gi bleed This is a 35-year-old male with past medical history of ADHD, insomnia presents to the hospital with complaints of bloody vomitus as well as bloody stool. Patient reports that on Friday he improved with, has been vomitings about 3-4 times every day until yesterday where he noticed his vomitus had blood. He had 2 episodes of bloody vomiting yesterday, and then he noticed bloody stools yesterday. This stool blood was dark blood but he also had 1 episode of bright red blood per rectum He has also had stomach pain since Friday nonradiating, localized to the epigastric region, 10/14, associated with nausea vomiting. Patient reports that he takes Advil daily for generalized pains and aches and he has been taking that for few months. He reports that his vomiting was aggressive/retching like and then he developed vomiting. he christine any headache, no change in vision, no chest pain, no shortness of breath, no cough, he reports dizziness but otherwise no shortness of breath. No Urinary symptoms and no lower extremity edema On arrival to the ED patient hemodynamically stable with no significant abnormal vitals Labs are significant for WBC count of 14.1, hemoglobin of 11.8 with no previous 1 for comparison, PC of 14.5, INR 1.2, labs otherwise unremarkable Abdominal pelvic CT shows no acute CT findings, no abnormal intraluminal ir contrast accumulation to suggest a site of active GI bleeding at the time of the scan. Discharge diagnosis upper GI bleed due to gastric and duodenal ulcers 35-year-old male who presents to the hospital with hematemesis and bloody bowel movements, with history of daily Advil use 4 months due to generalized pains and aches, patient was treated with intravenous a Protonix kept NPO his hematocrit remained stable during the course of hospitalization patient did not have any further bout of hematemesis he underwent upper endoscopy on August 27 that showed gastric erosions and nonbleeding gastric and duodenal ulcer, patient has been strongly advised to abstain NSAIDs no smoking and alcohol he is being discharged home on Prilosec 40 mg b.i.d. In regard to his chronic medical issues including ADHD and insomnia patient has been continued on all home medications. Time Spent with Patient Time attestation: Total time spent providing and/or coordinating discharge services: Discharge coordination time: Greater than 30 minutes Quality: Stroke Does the patient have a stroke diagnosis?: No Physical Exam Vital Signs: Vital Signs: Last Vital Signs Temp 98.9 F 08/27/20 09:08 Pulse 71 08/27/20 09:40 Resp 20 08/27/20 09:40 BP 169/80 H 08/27/20 09:40 Pulse Ox 99 08/27/20 09:40 Body Mass Index 37.2 Constitutional: no acute distress cvs: rrr, no murmur res: clear to auscultation ,no rhonchii or wheezing abd: no rebound or guarding , nontender bowel sounds audible. ext pulses present , no edema neuro: axo3 , nonfocal. DS: Data Data Completed and Pending Pending studies at discharge: Pending at discharge 08/27/20 08:57 Surgical [PTH] Routine Labs on day of discharge: Laboratory Results - last 24 hr 08/26/20 08/26/20 08/27/20 12:32 20:54 04:05 WBC 9.0 RBC 3.40 L Hgb 9.5 L 9.2 L 9.0 L Hct 29.3 L 27.8 L 28.2 L MCV 82.9 MCH 26.5 L MCHC 31.9 RDW 12.5 Plt Count 289 MPV 11.7 Absolute Nucleated RBC 0.000 Nucleated RBC % (auto) 0.0 Sodium Potassium Chloride Carbon Dioxide Anion Gap BUN Creatinine Estim Creat Clear Calc Estimated GFR Random Glucose Calcium 08/27/20 04:05 WBC RBC Hgb Hct MCV MCH MCHC RDW Plt Count MPV Absolute Nucleated RBC Nucleated RBC % (auto) Sodium 139 Potassium 3.9 Chloride 104 Carbon Dioxide 29 Anion Gap 10 L BUN 8 L Creatinine 1.03 Estim Creat Clear Calc 147.0 Estimated GFR > 60 Random Glucose 88 Calcium 8.1 L Preliminary micro results at discharge 08/25/20 16:01 Blood Culture - Preliminary Blood - Venous No growth after 24 hours. 08/25/20 15:37 Blood Culture - Preliminary Blood - Venous No growth after 24 hours. Discharge Plan Discharge Patient Disposition: Home, Self-Care Discharge Diagnosis: upper gi bleed gastric and duodenal ulcers Referrals: Vidal Mendoza MD [Primary Care Provider] - 1 Week Discharge Medications: New omeprazole 40 mg capsule,delayed release(DR/EC) 40 mg PO BID Qty: 60 RF: 0 Continued trazodone 150 mg tablet 150 mg PO BEDTIME PRN (Reason: insomnia) RF: 0 dextroamphetamine-amphetamine [Adderall XR] 30 mg capsule,extended release 24hr 30 mg PO DAILY RF: 0 metoclopramide HCl 10 mg tablet 10 mg PO QID PRN (Reason: nausea) RF: 0 bupropion HCl 150 mg tablet extended release 24 hr 150 mg PO DAILY RF: 0 diphenhydramine HCl [Benadryl] 25 mg Capsule 25 mg PO Q6H PRN (Reason: Allergy Symptoms) RF: 0 melatonin 5 mg Tablet 5 mg PO BEDTIME PRN (Reason: Insomnia) RF: 0 Discontinued ibuprofen [Advil] 200 mg Tablet 200 mg PO Q6H PRN (Reason: Pain) RF: 0 Discharge Orders: Discharge Order (Routine); Ordered 08/27/20 Ordered By: Aristeo Gilman Diet: advance to usual diet Activity on Discharge: As tolerated Stand Alone Forms: Patient Portal Discharge page Care Plan Goals: Avoid aspirin NSAIDs smoking and alcohol Health Concerns: GI bleed you have been diagnosed to have gastric and duodenal ulcer and gastric erosion due to use of drugs like ibuprofen therefore stop using all drugs similar to ibuprofen avoid alcohol and smoking and take Prilosec twice daily as prescribed Plan of Treatment: Outpatient follow-up with Gastroenterology in 4 weeks and primary care physician in next 7-10 Assessment: As per discharge summary
--- NOTE | 2020-08-27 11:45 | MHC.CM.PN ---
PT WILL DC HOME TODAY WITH NO SERVICES. PT TO ARRANGE TRANSPORTATION
== END 2020-08-27 12:15 | disposition home or self-care (01) | DRG 241 ==
LOC: HO.ED 18:34 → HO.EDOVER 22:21 → HO.IMC 22:32
PROVIDERS: Internal Medicine; Internal Medicine Gastroenterology; Physician Assistant Medical; Admitting Provider Internal Medicine; Emergency Provider Emergency Medicine; PCP Internal Medicine; Visit Provider Hospitalist
PROC: 0DJ08ZZ Inspection of Upper Intestinal Tract, Via Natural or Artificial Opening Endoscopic (ICD-10-PCS; CPT 43235; principal; 2020-08-27 08:00)
DX: K26.4 Chronic or unspecified duodenal ulcer with hemorrhage (principal); F90.9 Attention-deficit hyperactivity disorder, unspecified type; D62 Acute posthemorrhagic anemia; K25.4 Chronic or unspecified gastric ulcer with hemorrhage; G47.00 Insomnia, unspecified; Z20.822 Contact with and (suspected) exposure to COVID-19; Z79.1 Long term (current) use of non-steroidal anti-inflammatories (NSAID); Z79.899 Other long term (current) drug therapy
CPT/HCPCS: 43239; 0241U; 36415; 74178; 80048; 80053; 80320; 81003; 82272; 83605; 83690; 83735; 85014; 85018; 85025; 85027; 85610; 86850; 86900; 86901; 87040; 87205; 88305; 88342; 93005; 96365; 96375; 99219; 99285; 99291; J2270; J2405; J2543; J2765; Q0163; Q9967

== ENCOUNTER 2020-10-03 09:08 | Outpatient (REF) | payer MEDICAID, SELFPAY ==
[2020-10-04 14:02] LABS: H Pylori Breath Test DETECTED (NOT DETECTED)
== END 2020-10-03 09:09 | disposition home or self-care (01) ==
LOC: HO.LNP 09:08
PROVIDERS: PCP Internal Medicine; Referring Provider Internal Medicine; Visit Provider Internal Medicine Gastroenterology
DX: K92.2 Gastrointestinal hemorrhage, unspecified (principal)
CPT/HCPCS: 83013; 99211

== ENCOUNTER 2023-11-05 11:57 | Outpatient (REF) | payer MEDICAID, SELFPAY ==
[2023-11-05 14:37] LABS: MANUAL DIFF FLAG NO
[2023-11-05 14:41] LABS: Basophils Absolute Auto 0.1 X10*3/uL (0.0-0.2); Basophils Percent Auto 0.9 % (0-2); Eosinophils Absolute Auto 0.4 X10*3/uL (0.0-0.4); Eosinophils Percent Auto 4.5 % (0-4); Hematocrit 47.4 % (42.0-52.0); Hemoglobin 14.7 g/dl (14.0-18.0); Imm Gran Abs Auto 0.03 X10*3/uL (0.00-0.03); Imm Gran Pct Auto 0.4 % (0.0-0.4); Lymphocytes Absolute Auto 1.8 X10*3/uL (1.2-4.9); Lymphocytes Percent Auto 22.1 % (20-40); Mean Corpuscular Hemoglobin 25.6 pg (27.0-33.0); Mean Corpuscular Volume 82.6 fL (80.0-98.0); Monocytes Absolute Auto 0.5 X10*3/uL (0.1-1.2); Monocytes Percent Auto 6.2 % (2-11); Neutrophils Absolute Auto 5.2 x10*3/uL (2.0-8.3); Neutrophils Percent Auto 65.9 % (45-73); Platelet Count 291 X10*3/uL (160-400); Red Blood Count 5.74 X10*6/uL (4.60-5.80); Red Cell Distribution Width 12.5 % (11.0-16.0)
[2023-11-05 15:06] LABS: Cholesterol 246 mg/dL (<200); HDL Cholesterol 44 mg/dL (>40); LDL Cholesterol Calculated 151 mg/dL (<100); Triglycerides 256 mg/dL (<150)
[2023-11-05 15:27] LABS: TSH reflex Free T4 0.67 uIU/mL (0.32-4.0)
[2023-11-06 04:04] LABS: HIV AB/AG Nonreactive (Nonreactive); HIV Num 1 0.04 S/CO (0.00-0.99); ~HepC Num1 0.44 S/CO (0.00-0.79); ~Hepatitis C Antibody Nonreactive (Nonreactive)
[2023-11-06 14:13] LABS: RPR Rapid Plasma Reagin NON-REACTIVE (NON-REACTIVE)
== END 2023-11-05 11:58 | disposition home or self-care (01) ==
LOC: HO.CHCLDS 11:57
PROVIDERS: Visit Provider Internal Medicine
DX: Z00.00 Encounter for general adult medical examination without abnormal findings (principal); R03.0 Elevated blood-pressure reading, without diagnosis of hypertension
CPT/HCPCS: 36415; 80061; 84443; 85025; 86592; 86803; 87389

== ENCOUNTER 2024-12-17 14:36 | Outpatient (REF) | payer MEDICAID, SELFPAY ==
--- OUTSIDE RECORDS SUMMARY | 2024-12-17 14:00 | XMS_ITS | Encounter Summary ---
Author Organization [employer] Address [address] [place] [address] Care Team Providers Care Denture Packer Name Role Phone Vidal Mendoza MD Primary Care Provider [phone] Reason for Referral * Medications - Closed Specialty Diagnoses / Procedures Referred By Gustavo perea Referred To Contact Diagnoses Class 2 obesity due to excess calories without serious comorbidity with body mass index (BMI) of 36.0 to 36.9 in adult Vidal Mendoza MD [address] [place] [id number] Phone: tel: fax: Referral ID Status Reason Start Date Expiration Date Visits Re quested Visits Authorized [id number] Closed 1 1 Reason for Visit * Reason Comments Annual Exam Encounter Details Date Type Department Care Team ([facility] Contact Info) Description 12/17/2024 2:00 PM EDT Office Visit [facility] MED & PEDS [address] [place] [address] Vidal Mendoza MD [address] [place] [id number] Annual physical exam (Primary Dx); Routine screening for STI (sexually transmitted infection); Mixed hyperlipidemia; Class 2 obesity due to excess calories without serious comorbidity with body mass index (BMI) of 36.0 to 36.9 in adult; Dietary counseling; Exercise counseling; Toe web intertrigo; Allergic contact dermatitis due to other agents Social History Tobacco Use Types Packs/Day Years Used Date Smoking Tobacco: Every Day Cigarettes Smokeless Tobacco: Never Alcohol Answer Date Recorded How often do you have a drink containing alcohol ? 1 12/17/2024 How many drinks containing a lcohol do you have on a typical day when you are drinking? 0 12/17/2024 How often do you have six or more drinks on one occasion? 0 12/17/2024 Depression Answer Date Recorded Patient Health Questionnaire-9 Score 9 12/17/2024 Patient Health Questionnaire-9 Score 9 12/17/2024 Last PHQ-9: Questionnaire Data Not on file 0 12/17/2024 Housing Stability Answer Date Recorded What is your housing situation today? I have mariangel simpson 12/17/[address] you li ve. Do you have problems with any of the following? None of the above 12/17/2024 Food Insecurity Answer Date Recorded Within the past 12 months, y ou worried that your food would run out before you got money to buy more: Never True 12/17/2024 Within the past 12 months,th e food you bought just didn't last and you didn't have enough money to get more: Never True 03/2025 Transportation Answer Date Recorded In the past 12 months, has l ack of transportation kept you from medical appts, meetings, work or from getting things needed for daily living? No 12/17/2024 Utilities Answer Date Recorded In the past 12 months, has t he electric, gas, oil or water company threatened to shut off services in your home? No 12/17/2024 Depression Answer Date Recorded Patient Health Questionnaire-2 Score 2 12/17/2024 Internet Access Answer Date Recorded Internet Access Q1 Yes 12/17/2024 Internet Access Q2 Not on file 12/17/2024 Sex and Gender Information Value Date Recorded Sex Assigned at Male 02/04/2022 10:20 AM EDT Legal Sex Male 10:20 AM EDT Gender Identity Male 02/04/2022 10:20 AM EDT Sexual Orientation Don't know 02/04/2022 10 :20 AM EDT documented as of this encounter Last Filed Vital Signs Vital Sign Reading Time Taken Comments Blood Pressure 137/85 12/17/2024 1:55 PM EDT Pulse 81 12/17/2024 1:55 PM EDT Temperature 36.9 C (98.4 F) 12/17/2024 1:55 PM EDT Respiratory Rate 20 12/17/2024 1:55 PM EDT Oxygen Saturation 97% 12/17/2024 1:55 PM EDT Inhaled Oxygen Concentration - - Weight 140 kg (309 lb) 12/17/2024 1:55 PM EDT Height 188 cm (6' 2.02 ) 12/17/2024 1:55 PM EDT Body Mass Index 39.65 12/17/2024 1:55 PM EDT documented in this encounter Functional Status * Over the past 2 weeks, how often have you been bothered by any of the following problems? Question Answer Date of Assessment Author Patient Health Questionnaire-2 Score 2 12/06 2:10 PM EDT Scarlett Middleton MA * Little interest or pleasure in doing things Answer Date of Assessment Author Several days 12/17/2024 2:10 PM EDT Yvan Middleton MA * Feeling down, depressed, or hopeless Answer Date of Assessment Author Several days 12/17/2024 2:10 PM EDT Yvan Middleton MA * Trouble falling or staying asleep, or sleeping too much Answer Date of Assessment Author More than half the days 12/17/2024 2:10 PM EDT Scarlett Mandujano MA * Feeling tired or having little energy Answer Date of Assessment Author Several days 12/17/2024 2:10 PM EDT Yvan Middleton MA * Poor appetite or overeating Answer Date of Assessment Author Not at all 12/17/2024 2:10 PM EDT Yvan Middleton MA * Feeling bad about yourself - or that you are a failure or have let yourself or your family down Answer Date of Assessment Author Several days 12/17/2024 2:10 PM EDT Yvan Middleton MA * Trouble concentrating on things, such as reading the newspaper or watching television Answer Date of Assessment Author Nearly every day 12/17/2024 2:10 PM EDT Miguel A Middleton MA * Moving or speaking so slowly that other people could have noticed? Or the opposite - being so fidgety or restless that you have been moving around a lot more than usual. Answer Date of Assessment Author Not at all 12/17/2024 2:10 PM EDT Yvan Middleton MA * Thoughts that you would be better off or hurting yourself in some way Answer Date of Assessment Author Not at all 12/17/2024 2:10 PM EDT Yvan Middleton MA * Patient Health Questionnaire-9 Score Answer Date of Assessment Author 9 12/17/2024 2:10 PM EDT Yvan Middleton MA * How difficult have these problems made it for you to do your work, take care of things at home, or get along with other people? Answer Date of Assessment Author Somewhat difficult 12/17/2024 2:10 PM EDT Scarlett Middleton MA documented as of this encounter Progress Notes * Vidal Mendoza MD - 12/17/2024 2:00 PM EDT SUBJECTIVE Hugh Ivey is a 39 y.o. male who presents for Annual Exam. HPI Mr. Hugh Ivey is here for his annual physical exam. He is doing overall well. He is worried about his mom who is going to be homeless. Problem List[1] Allergies[2] Medications Ordered Prior to Encounter[3] Review of Systems Constitutional: Negative for activity change, appetite change, chills and diaphoresis. HENT: Negative for dental problem, drooling and ear discharge. Eyes: Negative for pain and itching. Respiratory: Negative for cough, choking and chest tightness. Cardiovascular: Negative for palpitations and leg swelling. Gastrointestinal: Negative for abdominal pain, anal bleeding and blood in stool. Endocrine: Negative for cold intolerance and heat intolerance. Genitourinary: Negative for flank pain, frequency and genital sores. Musculoskeletal: Negative for back pain. Neurological: Negative for light-headedness, numbness and headaches. Psychiatric/Behavioral: Negative for agitation, confusion and decreased concentration. OBJECTIVE Vitals: 12/17/24 1355 BP: 137/85 BP Location: Left arm Patient Position: Sitting BP Cuff Size: Adult long Pulse: 81 Resp: 20 Temp: 98.4 ??F (36.9 ??C) TempSrc: Oral SpO2: 97% Weight: 309 lb (140 kg) Height: 6' 2.02 (1.88 m) Physical Exam Constitutional: General: He is not in acute distress. Appearance: Normal appearance. He is obese. He is not ill-appearing, toxic- appearing or diaphoretic. HENT: Head: Normocephalic. Right Ear: Tympanic membrane normal. Left Ear: Tympanic membrane normal. Nose: Nose normal. Eyes: General: No scleral icterus. Right eye: No discharge. Left eye: No discharge. Pupils: Pupils are equal, round, and reactive to light. Cardiovascular: Rate and Rhythm: Normal rate and regular rhythm. Heart sounds: No murmur heard. No friction rub. No gallop. Pulmonary: Effort: Pulmonary effort is normal. No respiratory distress. Breath sounds: Normal breath sounds. No stridor. No wheezing, rhonchi or rales. Chest: Chest wall: No tenderness. Abdominal: General: Abdomen is flat. There is no distension. Palpations: Abdomen is soft. There is no mass. Tenderness: There is no abdominal tenderness. There is no right CVA tenderness, guarding or rebound. Hernia: No hernia is present. Genitourinary: Penis: Normal. Testes: Normal. Musculoskeletal: General: Normal range of motion. Cervical back: Normal range of motion. Skin: General: Skin is warm. Comments: Intertrigo of the second toe web and of the fourth right toe web Ill-defined erythematous patches of the dorsal aspect of the feet bilaterally. Neurological: General: No focal deficit present. Mental Status: He is alert. Psychiatric: Mood and Affect: Mood normal. Behavior: Behavior normal. Assessment/Plan Assessment/Plan Diagnoses and all orders for this visit: Annual physical exam Comments: Normal exam Patient is to maintain a healthy and balanced diet. Orders: - CBC auto differential; Future - Comprehensive Metabolic Panel; Future - Lipid Panel, Standard; Future - TSH with Reflex to Free T4; Future - terbinafine (LamISIL) 250 MG tablet; Take 1 tablet (250 mg) by mouth Once per day for 14 days. Routine screening for STI (sexually transmitted infection) Comments: Safe sexual practices recommended. Patient will be contacted with the results of the workup. Orders: - Chlamydia/N. Gonorrhoeae RNA, TMA, Urogenitial - HIV-1/2 Antigen and Antibodies, Fourth Generation, with Reflexes; Future - Hepatitis C Antibody with Reflex to HCV, RNA, Quantitative, Real-Time PCR; Future - RPR (Monitor) with Reflex to Titer; Future - Urinalysis w/reflex microscopic; Future - Trichomonas vaginalis RNA, Qualitative, TMA, Males; Future Mixed hyperlipidemia Comments: Low-cholesterol diet Low-carb diet. Patient admits dietary indiscretions. Class 2 obesity due to excess calories without serious comorbidity with body mass index (BMI) of 36.0 to 36.9 in adult Dietary counseling Exercise counseling Dietary Recommendations: Fruits, vegetables, whole grains, protein foods, and fat-free or low-fat dairy products are healthychoices. Eat different types of protein foods in your diet. This can include seafood, lean meats, poultry, beans, peas, lentils, nuts, seeds, soy products, and eggs. Limit foods and beverages higher in added sugars, saturated fat, and sodium. Exercise Recommendations: At least 150 minutes of moderate-intensity physical activity per week, or an equivalent combinationof moderate- and vigorous-intensity activity Toe web intertrigo Drysol recommended to use as directed Terbinafine for 14 days 250 mg once a day. Allergic contact dermatitis due to other agents - triamcinolone (Kenalog) 0.1 % cream; Apply topically if needed in the morning and at bedtime (pain and swelling). [1] Patient Active Problem List Diagnosis Gastric ulcer Contact dermatitis due to nickel Attention deficit hyperactivity disorder, predominantly inattentive type Allergic rhinitis Hyperlipidemia Obesity Skin lesion [2] No Known Allergies [3] Current Outpatient Medications on File Prior to Visit Medication Sig Dispense Refill Adderall XR 30 MG 24 hr capsule TAKE 1 CAPSULE BY MOUTH DAILY DIRECTED Blood Pressure kit To check the BP once a day 1 kit 0 buPROPion XL (Wellbutrin XL) 150 MG 24 hr tablet Take 150 mg by mouth Once per day. hydroCHLOROthiazide 12.5 MG tablet Take 1 tablet (12.5 mg) by mouth Once per day. 30 tablet 11 traZODone (Desyrel) 150 MG tablet Take 150 mg by mouth if needed at bedtime for sleep. No current facility-administered medications on file prior to visit. documented in this encounter Plan of Treatment Upcoming Encounters Date Type Department Care Team (Late st Contact Info) Description 12/22/2024 3:00 PM EDT Office Visit [facility] ADULT DENTAL [address] [place] [address] Kevin Mendoza 01/31/2025 3:15 PM EDT Office Visit [facility] MED & PEDS [address] [place] [address] Vidal Mendoza MD [address] [place] [address] Scheduled Orders Name Type Priority Associated Diagnoses Orde r Schedule Chlamydia/N. Gonorrhoeae RNA, TMA, Urogenitial Microbiology Routine Routine screening for STI (sexually transmitted infection) Ordered: 12/17/2024 HIV-1/2 Antigen and Antibodies, Fourth Generation, with Reflexes Lab Routine Routine screening for STI (sexually transmitted infection) Expected: 12/17/2024 (Approximate), Expires: 12/17/2025 Hepatitis C Antibody with Reflex to HCV, RNA, Quantitative, Real-Time PCR Lab Routine Routine screening for STI (sexually transmitted infection) Expected: 12/17/2024, Expires: 12/17/2025 RPR (Monitor) with Reflex to Titer Lab Routine Routine screening for STI (sexually transmitted infection) Expected: 12/17/2024, Expires: 12/17/2025 Urinalysis w/reflex microscopic Lab Routine Routine screening for STI (sexually transmitted infection) Expected: 12/17/2024, Expires: 12/17/2025 Trichomonas vaginalis RNA, Qualitative, TMA, Males Lab Routine Routine screening for STI (sexually transmitted infection) Expected: 12/17/2024, Expires: 12/17/2025 CBC auto differential Lab Routine Annual physical exam Expected: 12/17/2024 (Approximate), Expires: 12/17/2025 Comprehensive Metabolic Panel Lab Routine Annual physical exam Expected: 12/17/2024 (Approximate), Expires: 12/17/2025 Lipid Panel, Standard Lab Routine Annual physical exam Expected: 12/17/2024 (Approximate), Expires: 12/17/2025 TSH with Reflex to Free T4 Lab Routine Annual physical exam Expected: 12/17/2024 (Approximate), Expires: 12/17/2025 documented as of this encounter Visit Diagnoses Diagnosis Annual physical exam- Primary Routine general medical examination at a health care facility Routine screening for STI (sexually transmitted infection) Screening examination for venereal disease Mixed hyperlipidemia Class 2 obesity due to excess calories without serious comorbidity with body mass index (BMI) of 36.0 to 36.9 in adult Dietary counseling Dietary surveillance and counseling Exercise counseling Toe web intertrigo Allergic contact dermatitis due to other agents documented in this encounter Additional Health Concerns Assessment Noted Time PHQ-9 Depression Total Score: 9 12/18/19 25 2:10 PM EDT documented as of this encounter Care Teams Denture Packer Relationship Specialty Start Date End Date Vidal Mendoza MD [address] [place] [id number] PCP - General Internal Medicine 03/08/11 documented as of this encounter
--- OUTSIDE RECORDS SUMMARY | 2024-12-17 17:22 | XMS_ITS | Clinical Summary ---
Author Organization [employer] [facility] ity Address [address] [place] [address] Care Team Providers Care Physics Professor Name Role Phone Unavailable Primary Care Provider Unavailabl e Social History Tobacco Use Types Packs/Day Years Used Date Smoking Tobacco: Never Assessed Sex and Gender Information Value Date Recorded Sex Assigned at Not on file Legal Sex Male 10:04 AM EST Gender Identity Not on file Sexual Orientation Not on file Plan of Treatment Health Maintenance Due Date Last Done Comments DTaP,Tdap,and Td Vaccines (1 - Tdap) 2006 Hepatitis B Vaccines (1 of 3 - 19+ 3-dose series) 2006 Depression Screening 04/07/2024 COVID-19 Vaccine (1 - 2023-2 5 season) 2024 Influenza Vaccine (#1) 2024 HIB Vaccines Aged Out No longer eligi ble based on patient's age to complete this topic HPV Vaccines Aged Out No longer eligi ble based on patient's age to complete this topic Hepatitis A Vaccines Aged Out No long er eligible based on patient's age to complete this topic IPV Vaccines Aged Out No longer eligi ble based on patient's age to complete this topic MMR Vaccines Aged Out No longer eligi ble based on patient's age to complete this topic Meningococcal ACWY Vaccine Aged Out N o longer eligible based on patient's age to complete this topic Meningococcal B Vaccine Aged Out No l onger eligible based on patient's age to complete this topic Pneumococcal Vaccine: Pediat rics (0 to 5 Years) and At-Risk Patients (6 to 49 Years) Aged Out No longer eligible b ased on patient's age to complete this topic RSV Immunization Patients Un anthony 20 months Aged Out No longer eligible b ased on patient's age to complete this topic Varicella Vaccines Aged Out No longer eligible based on patient's age to complete this topic
--- OUTSIDE RECORDS SUMMARY | 2024-12-17 17:22 | XMS_ITS | Clinical Summary ---
Author Organization [facility] Address [address] [place] [phone] Phone Care Team Providers Care Accordion Maker Name Role Phone Unavailable Primary Care Provider Unavailabl e Immunizations Immunization Administration Dates Next Due DTP 12/01/1991, 9,1987,07/06,1987 Hep B, ped/adol 07/17/2001,03/18/2001,05/04/1998 Hib (HbOC) 10/15/1988 MMR 05/04/1998,10/15/1988 Meningococcal Conj (Menactra) MCV4P 08/27/2007 OPV 12/01/1991, 9,1987,04/14 Td (adult) (Tenivac), 5 Lf t etanus toxoid, PF, adsorbed 05/04/1998 Tdap 08/27/2007 Family History Relation Name Status Comments Brother Alive Brother: Alive and well Mother Alive Mother: Alive a nd well Other Family history of Hypertension, Family history of Diabetes mellitus Social History Tobacco Use Types Packs/Day Years Used Date Smoking Tobacco: Never Assessed Sex and Gender Information Value Date Recorded Sex Assigned at Not on file Legal Sex Male 4:24 PM EDT Gender Identity Not on file Sexual Orientation Not on file Plan of Treatment Health Maintenance Due Date Last Done Comments Varicella Vaccines (1 of 2 - 13+ 2-dose series) 02/15/2000 HPV Vaccines (1 - 3-dose SCDM series) 2014 DTaP,Tdap,and Td Vaccines (7 - Td or Tdap) 08/26/2017 08/27/2007, 05/04/1998, 12/01/1991, Additional history exists Influenza Vaccines (#1) 2024 COVID-19 Vaccine ( season) 2024 HIB Vaccines Completed 10/15/1988 IPV Vaccines Completed 12/01/1991, 10/05, 1987, Additional history exists MMR Vaccines Completed 05/04/1998, 10/15/1988 Hepatitis B Vaccines Completed 07/17/2001, 03/18/2001, 05/04/1998 Meningococcal Vaccine Aged Out 08/27/2007 No iris ravinder eligible based on patient's age to complete this topic Hepatitis A Vaccines Aged Out No long er eligible based on patient's age to complete this topic Men B Vaccine Aged Out No longer elig ible based on patient's age to complete this topic Pneumococcal Vaccine Aged Out No long er eligible based on patient's age to complete this topic
--- OUTSIDE RECORDS SUMMARY | 2024-12-17 17:22 | XMS_ITS | Encounter Summary ---
Author Organization [facility] Address [address] [place] [address] Phone Care Team Providers Care Transfer Coordinator Name Role Phone Jason Licea MD Primary Care Provider Kasandra fletcher Encounter Details Date Type Department Care Team (Late st Contact Info) Description 11/21/2016 Conversion Encounter [facility] - [address] [phone] Social History Tobacco Use Types Packs/Day Years Used Date Smoking Tobacco: Never Assessed Sex and Gender Information Value Date Recorded Sex Assigned at Not on file Legal Sex Male 4:24 PM EDT Gender Identity Not on file Sexual Orientation Not on file documented as of this encounter Plan of Treatment Not on file documented as of this encounter Visit Diagnoses Not on filedocumented in this encounter Care Teams Transfer Coordinator Relationship Specialty Start Date End Date Jason Licea MD PCP - General 11/15/16 05/22/22 documented as of this encounter
--- OUTSIDE RECORDS SUMMARY | 2024-12-17 17:22 | XMS_ITS | Encounter Summary ---
Author Organization [employer] Address [address] [place] [address] Care Team Providers Care Supervisor Blast Furnace Name Role Phone Vidal Mendoza MD Primary Care Provider [phone] Reason for Visit * Reason Onset Date Comments chart prep 12/16/2024 Encounter Details Date Type Department Care Team ([facility] Contact Info) Description 12/16/[address] [facility] CH[facility] MED & PEDS [address] [place] [address] Vidal Mendoza MD [address] [place] [address] chart prep Social History Tobacco Use Types Packs/Day Years [...] AM EDT documented as of this encounter Miscellaneous Notes * Telephone Encounter - Colette Lucia MA - 12/16/2024 1:22 PM EDT Chart Prep Labs: done Images: done Referrals: not applicable Vaccines due: Covid, Flu, PCV20, and HPV Screenings: not applicable Overdue care gaps: SBIRT, SDOH, PHQ-9, and Disability screen documented in this encounter Plan of Treatment Upcoming Encounters Date Type Department Care Team (Late st Contact Info) Description 12/22/2024 3:00 PM EDT Office Visit [facility] ADULT DENTAL [address] [place] [address] Kevin Mendoza 01/31/2025 3:15 PM EDT Office Visit [facility] MED & PEDS [address] [place] [address] Vidal Mendoza MD [address] [place] [address] documented as of this encounter Visit Diagnoses Not on filedocumented in this encounter Additional Health Concerns Assessment Noted Time PHQ-9 Depression Total Score: 8 11/05/19 24 11:08 AM EDT documented as of this encounter Care Teams Supervisor Blast Furnace Relationship Specialty Start Date End Date Vidal Mendoza MD [address] [place] [id number] PCP - General Internal Medicine 03/08/11 documented as of this encounter
--- OUTSIDE RECORDS SUMMARY | 2024-12-17 17:22 | XMS_ITS | Clinical Summary ---
Author Organization [employer] Address [address] [facility] [address] [place] [address] Care Team Providers Care Hcc Coders Name Role Phone Vidal Mendoza MD Primary Care Provider [phone] Allergies No known active allergies Medications Adderall XR 30 MG 24 hr capsule TAKE 1 CAPSULE BY MOUTH DAILY DIRECTED Active buPROPion XL (Wellbutrin XL) 150 MG 24 hr tablet Take 150 mg by mouth Once per day. Active traZODone (Desyrel) 150 MG tablet Take 150 mg by mouth if needed at bedtime for sleep. Active Blood Pressure kitIndications:An nual physical exam To check the BP once a day 1 kit 4 Active hydroCHLOROthiazi de 12.5 MG tabletIndications :Elevated BP without diagnosis of hypertension Take 1 tablet (12.5 mg) by mouth Once per day. 30 tablet 11 4 Active terbinafine (LamISIL) 250 MG tabletIndications :Annual physical exam Take 1 tablet (250 mg) by mouth Once per day for 14 days. 14 tablet 5 01/01/20 25 Active triamcinolone (Kenalog) 0.1 % creamIndications: Allergic contact dermatitis due to other agents Apply topically if needed in the morning and at bedtime (pain and swelling). 30 g 2 5 Active Tirzepatide (Mounjaro) 2.5 MG/0.5ML solution auto-injectorIndi cations:Class 2 obesity due to excess calories without serious comorbidity with body mass index (BMI) of 36.0 to 36.9 in adult Inject 2.5 mg under the skin 1 (one) time per week. 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 Hyperlipidemia 03/25/2008 Obesity 03/25/2002 Allergic rhinitis 03/25/1998 Encounters Date Type Department Care Team Description 12/17/2024 2:00 PM EDT Office Visit [facility] [address] [place] [address] Vidal Mendoza MD Annual physical exam (Primary Dx); Routine screening for STI (sexually transmitted infection); Mixed hyperlipidemia; Class 2 obesity due to excess calories without serious comorbidity with body mass index (BMI) of 36.0 to 36.9 in adult; Dietary counseling; Exercise counseling; Toe web intertrigo; Allergic contact dermatitis due to other agents 12/17/2024 Travel 12/16/2024 Telephone [facility] [address] [place] [address] Vidal Mendoza MD chart prep 12/10/2024 Patient Outreach [facility] [address] [place] [id number] Vidal Mendoza MD Pre-visit Planning (Pre visit planning LVM ) 09/27/[address] [address] Vidal Mendoza MD No Show 09/24/2024 Telephone [facility] [address] [place] [address] Vidal Mendoza MD chart prep 09/22/[address] [address] Vidal Mendoza MD Nurse Triage from Last 3 Months Immunizations Immunization Administration Dates Next Due DTP 12/01/1991, 9,1987,07/06,1987 Hep B, Adolescent or Pediatric 07/17/2001,2000,05/04/1998 Hib (HbOC) 10/15/1988 Influenza, Split (incl. rosanna fied surface antigen) 03/25/2012 Influenza, seasonal, injecta ble, preservative free 01/24/2016 MMR 05/04/1998,10/15/1988 Meningococcal MCV4P [id number]-135 08/27/2007 OPV, Trivalent 12/01/1991, 9,1987,04/14 Td (adult), 5 Lf tetanus tox oid, preservative free, adsorbed 05/04/1998 Tdap 09/11/2015,08/27/2007 Family History Medical History Relation Name Comments Diabetes type II Father Hypertension Father Diabetes type II Mother Hypertension Mother Relation Name Status Comments Father Mother Social History Tobacco Use Types Packs/Day Years Used Date Smoking Tobacco: Every Day Cigarettes Smokeless Tobacco: Never Tobacco Cessation:Ready to Q uit: Not Asked; Counseling Given: Not Answered Alcohol Answer Date Recorded How often do [...] Don't know 02/04/2022 10 :20 AM EDT Last Filed Vital Signs Vital Sign Reading [...] Mass Index 39.65 12/17/2024 1:55 PM EDT Plan of Treatment Upcoming Encounters Date Type Department Care Team (Late st Contact Info) Description 12/22/2024 3:00 PM EDT Office Visit [facility] [address] [place] [address] Kevin Mendoza 01/31/2025 3:15 PM EDT Office Visit [facility] [address] [place] [address] Vidal Mendoza MD [address] [place] [address] Health Maintenance Due Date Last Done Comments Family Planning (PISQ) 2002 HPV Vaccines (1 - Male 3-dose series) 2002 Pneumococcal Vaccine: Pediatrics (0 to 5 Years) and At-Risk Patients (6 to 49) Years (1 of 2 - PCV) 2006 Dental Prophylaxis 09/17/2024 03/18/2024 Dental Oral Exam 09/18/2024 03/19/2024 COVID-19 Vaccine (3 - season) 2024 07/14/2020, 06/25/2020 Influenza Vaccine (#1) 2024 01/24/2016, 2011 Dental X-Ray: Bitewings 03/19/2025 03/18/2024 Tobacco Screening 05/10/2025 05/10/2024 Depression Monitoring 06/16/2025 12/17/2024, 025 DTaP/Tdap/Td Vaccines (8 - Td or Tdap) 09/10/2025 09/11/2015, 08/27/2007, 05/04/1998, Additional history exists Alcohol/Substance Use Screening 12/17/2025 12/17/2024 Disability Screening 12/17/2025 12/17/2024 SDOH Screening 12/17/2025 12/17/2024 Dental X-Ray: Full Mouth 03/19/2027 03/18/2024 Lipid Panel 11/04/2028 11/05/2023 Zoster Vaccines (1 of 2) 2037 RSV Patients and Patients Aged 60 years or older (1 - 1-dose 75+ series) 2062 HIB Vaccines Completed 10/15/1988 IPV Vaccines Completed 12/01/1991, 10/05, 1987, Additional history exists Hepatitis B Vaccines Completed 07/17/2001, 03/18/2001, 05/04/1998 Meningococcal Vaccine Aged Out 08/27/2007 No iris ravinder eligible based on patient's age to complete this topic HIV Screening Completed 11/05/2023 Hepatitis C Screening Completed 11/05/2023 Hepatitis A Vaccines Aged Out No long er eligible based on patient's age to complete this topic Meningococcal B Vaccine Aged Out No l onger eligible based on patient's age to complete this topic RSV under 20 months Aged Out No longe r eligible based on patient's age to complete this topic Rotavirus Vaccines Aged Out No longer eligible based on patient's age to complete this topic Procedures Procedure Name Priority Date/Time Associated Diagnosis Comments COMPREHENSIVE ORAL EVALUATION - NEW OR ESTABLISHED PATIENT Routine 03/19/2024 8:00 AM EST PROPHYLAXIS - ADULT Routine 03/18/2024 9 :00 AM EST INTRAORAL - COMPLETE SERIES OF RADIOGRAPHIC IMAGES Routine 03/18/2024 9:00 AM EST HEPATITIS C AB W/REFL TO HCV RNA, QN, PCR Routine 11/05/2023 11:59 AM EDT Annual physical exam HIV 1/2 ANTIGEN/ANTIBODY, FOURTH GENERATION W/RFL Routine 11/05/2023 11:59 AM EDT Annual physical exam LIPID PANEL, STANDARD Routine 11/05/2023 11:59 AM EDT Annual physical exam Elevated BP without diagnosis of hypertension from Last 3 Months or Most Recently Relevant to Health Maintenance Results * Hepatitis C Antibody with Reflex to HCV, RNA, Quantitative, Real-Time PCR (11/05/2023 11:59 AM EDT) Hepatitis C Antibody Nonreactive Nonreactive [facility] Comment:Antibodies to HCV no t detected; does not exclude early acuteHCV infection. Blood Venous blood specimen / Unknown 11/05/2023 11:59 AM EDT 11/05/2023 2:24 PM EDT Vidal Mnedoza MD LAB BLOOD ORDERABLES Final Result [facility] [address] [place] [phone] * HIV-1/2 Antigen and Antibodies, Fourth Generation, with Reflexes (11/05/2023 11:59 AM EDT) HIV AB/AG Nonreactive Nonreactive [facility] Comment:HIV-1 p24 Ag and/or HIV-1/HIV-2 Ab not detected.A test result that is nonreactive does not exclude thepossibility of exposure to or infection with HIV-1 and/orHIV-2. Nonreactive results in this assay for individualswith prior exposure to HIV-1 and/or HIV-2 may be due toantigen and antibody levels that are below the limit ofdetection of this assay.[employer] HIV Ag/Ab Combo assay result andsupplemental assay results should be interpreted inconjunction with the patient's clinical presentation,history and other laboratory results. If the results areinconsistent with clinical evidence, additional testing issuggested to confirm the result. Blood Venous blood specimen / Unknown 11/05/2023 11:59 AM EDT 11/05/2023 2:24 PM EDT us Vidal Mendoza MD LAB BLOOD ORDERABLES Final Result Performing Organization Address [facility] Co de Phone Number [facility] [address] [place] [phone] * (ABNORMAL) Lipid Panel, Standard (11/05/2023 11:59 AM EDT) Triglycerides 256(H) <150 mg/dL [facility] Comment:Desirable Triglyceri de: less than 150 mg/dLBorderline High Triglyceride 150-199 mg/dLHigh Triglyceride: 200-499 mg/dLVery High Triglyceride: greater than or equal to 5OO mg/dL Cholesterol 246(H) <200 mg/dL [facility] Comment:Desirable Cholestero l: less than 200 mg/dLBorderline High Cholesterol: 200-239 mg/dLHigh Cholesterol: greater than 239 mg/dL LDL Cholesterol Calculated 151(H) <100 mg/dL [facility] Comment:Desirable LDL: less than 100 mg/dLNear Optimal/Above Optimal LDL: 110- 129 mg/dLBorderline High LDL: 130-159 mg/dLHigh LDL: 160-189 mg/dLVery High LDL: greater than or equal to 190 mg/dL HDL Cholesterol 44 >40 mg/dL [facility] Comment:Desirable HDL: great er than 40 mg/dL Note: This HDL assay may give artificially low results in patients with liver disease. Blood Venous blood specimen / Unknown 11/05/2023 11:59 AM EDT 11/05/2023 2:24 PM EDT us Vidal Mendoza MD LAB BLOOD ORDERABLES Final Result Performing Organization Address City/[facility]/ZIP Co de Phone Number [facility] [address] [place] [address] [phone] from Last 3 Months or Most Recently Relevant to Health Maintenance Insurance [facility] STAND ADULT Care Teams Hcc Coders Relationship Specialty Start Date End Date Vidal Mendoza MD [address] [place] [phone] PCP - General Internal Medicine 03/08/11
--- OUTSIDE RECORDS SUMMARY | 2024-12-17 17:22 | XMS_ITS | Encounter Summary ---
Author Organization [employer] Address [address] [facility] [address] [place] [address] Care Team Providers Care Mixer Slagman Name Role Phone Vidal Mendoza MD Primary Care Provider [phone] Encounter Details Date Type Department Care Team (Latest Contact Info) Description 12/17/2024 Travel Social History Tobacco Use Types Packs/Day Years [...] your housing situation today? I have mariangel calvin 12/17/[address] you li [...] AM EDT documented as of this encounter Functional Status * Over the [...] [place] documented as of this encounter Plan of Treatment Upcoming Encounters Date Type Department Care Team (Late st Contact Info) Description 12/22/2024 3:00 PM EDT Office Visit [facility] ADULT D[facility] [address] [place] [address] Kevin Mendoza 01/31/2025 3:15 PM EDT Office Visit [facility] [address] [place] [address] Vidal Mendoza MD [address] [place] [address] documented as of this encounter Visit Diagnoses Not on filedocumented in this encounter Additional Health Concerns Assessment Noted Time PHQ-9 Depression Total Score: 12/18/19 25 2:10 PM EDT documented as of this encounter Care Teams Mixer Slagman Relationship Specialty Start Date End Date Vidal Mendoza MD [address] [place] [address] PCP - General Internal Medicine 03/08/11 documented as of this encounter
[2024-12-17 18:04] LABS: Appearance Urine Clear; Glucose Urine UA Negative (Negative); PH 5.0 (5.0-9.0); Specific Gravity - Urine >= 1.030 (1.005-1.025); UMIC TRIGGER UACC YES
[2024-12-17 18:11] LABS: MANUAL DIFF FLAG NO
[2024-12-17 18:21] LABS: Hematocrit 46.2 % (42.0-52.0); Hemoglobin 15.0 g/dl (14.0-18.0); Imm Gran Abs Auto 0.01 X10*3/uL (0.00-0.03); Imm Gran Pct Auto 0.1 % (0.0-0.4); Lymphocytes Absolute Auto 1.9 X10*3/uL (1.2-4.9); Mean Corpuscular HGB Conc 32.5 g/dl (31.0-36.0); Mean Corpuscular Hemoglobin 27.0 pg (27.0-33.0); Mean Corpuscular Volume 83.1 fL (80.0-98.0); NRBC Abs Auto 0.000 X10*3/uL (0.0-0.012); NRBC Pct Auto 0.0 /100WBC (0.0-0.2); Platelet Count 283 X10*3/uL (160-400); Red Blood Count 5.56 X10*6/uL (4.60-5.80); White Blood Count 8.3 X10*3/uL (4.8-10.8)
[2024-12-17 18:48] LABS: Albumin Level 4.8 g/dL (3.5-5.0); Alkaline Phosphatase 85 U/L (39-117); Anion Gap 13 (12-20); Aspartate Amino Transferase 55 U/L (5-37); Blood Urea Nitrogen 13 mg/dL (9-16); Calcium 9.2 mg/dL (8.4-10.2); Carbon Dioxide 25 mmol/L (22-29); Chloride 106 mmol/L (96-108); Cholesterol 259 mg/dL (<200); Estimated Glomerular Filt Rate > 60; HDL Cholesterol 44 mg/dL (>40); Potassium 4.1 mmol/L (3.3-5.1); Sodium 140 mmol/L (135-145); Total Protein 7.7 g/dL (6.5-8.0); Triglycerides 238 mg/dL (<150)
[2024-12-17 19:33] LABS: Alanine Aminotransferase 44 U/L (0-40)
[2024-12-18 09:01] LABS: HIV Num 1 0.04 S/CO (0.00-0.99); ~HepC Num1 0.30 S/CO (0.00-0.79); ~Hepatitis C Antibody Nonreactive (Nonreactive)
== END 2024-12-17 14:37 | disposition home or self-care (01) ==
LOC: HO.CHCLDS 14:36
PROVIDERS: Visit Provider Internal Medicine
DX: Z00.00 Encounter for general adult medical examination without abnormal findings (principal); Z11.3 Encounter for screening for infections with a predominantly sexual mode of transmission; Z11.4 Encounter for screening for human immunodeficiency virus [HIV]; Z11.59 Encounter for screening for other viral diseases
CPT/HCPCS: 36415; 80053; 80061; 81001; 84443; 85025; 86592; 86803; 87389